=== PATIENT | male | born 1940 | race Two or more races ===

== ENCOUNTER 2019-07-27 07:13 | Emergency (ER) | payer MEDICARE, OTHER ==
[2019-07-27 07:26] VITALS: BP 165/58; PULSE 83
--- NOTE | 2019-07-27 07:29 | EDM.PDOC ---
ED HPI GENERAL MEDICAL PROBLEM - General Chief Complaint: Respiratory Problem Stated Complaint: TEMP/RAPID BREATHING/CONGESTION Time Seen by Provider: 07/27/19 07:28 Source of Information: Reports: Patient, Old Records, RN, RN Notes Reviewed History Limitations: Reports: No Limitations - History of Present Illness INITIAL COMMENTS - FREE TEXT/NARRATIVE: Pt presents to ER from home by POV with c/o dry cough and fever that began yesterday. His highest temperature at home yesterday was 101.2F. He has been taking Tylenol for this last dose was at 0630HRS. This morning he woke up and has been having some difficulty breathing and a dry cough, pt room air SATs 88% placed on 2L/NC during triage. Denies chest pain, or orthopnea. Denies recent travel or any known exposures to COVID-19. Onset: Gradual Onset Date: 07/26/19 Duration: Constant, Getting Worse Location: Reports: Chest, Generalized Severity: Severe Improves with: Reports: None Worsens with: Reports: None Associated Symptoms: Reports: No Other Symptoms - Related Data Allergies Allergy/AdvReac Type Severity Reaction Status Date / Time No Known Allergies Allergy Verified 10/22/14 13:49 Home Meds: Home Meds Aspirin [Neal Chewable Aspirin] 81 mg PO DAILY 12/07/13 [History] Levothyroxine 250 mcg PO DAILY 12/07/13 [History] Sodium Bicarbonate 650 mg PO BID 12/07/13 [History] amLODIPine [Norvasc] 10 mg PO BID 12/07/13 [History] atenoloL [Atenolol] 50 mg PO BID 12/07/13 [History] atorvaSTATin [Lipitor] 20 mg PO BEDTIME 12/07/13 [History] Furosemide [Lasix] 20 mg PO DAILY #30 tablet 01/12/14 [Rx] Fludrocortisone [Florinef] 0.1 mg PO DAILY 10/22/17 [History] Insulin Detemir [Levemir Flextouch] 19 units SUBCUT BID 10/22/17 [History] Pioglitazone [Actos] 15 mg PO BID 10/22/17 [History] Saxagliptin HCl [Onglyza] 5 mg PO DAILY 10/22/17 [History] Terazosin [Hytrin] 5 mg PO DAILY 10/22/17 [History] Past Medical History HEENT History: Reports: Impaired Vision Cardiovascular History: Reports: Heart Failure, High Cholesterol, Hypertension Genitourinary History: Reports: BPH, Chronic Renal Insuffiency, Other (See Below ) (CKD Stage 3) Endocrine/Metabolic History: Reports: Diabetes, Type II, Hypothyroidism, Obesity /BMI 30+ Social & Family History - Family History Family Medical History: Noncontributory - Alcohol Use Alcohol Use History: No - Recreational Drug Use Recreational Drug Use: No - Living Situation & Occupation Living situation: Reports: , with Spouse Occupation: Retired ED ROS GENERAL - Review of Systems Review Of Systems: Comprehensive ROS is negative, except as noted in HPI. ED EXAM, GENERAL - Physical Exam Exam: See Below Exam Limited By: No Limitations General Appearance: Alert, No Apparent Distress, Obese, Other (Ill but non- toxic appearing) Eye Exam: Bilateral Eye: EOMI, Normal Inspection (No scleral icterus, no conjunctival erythema, inflammation, or drainage.), PERRL Ears: Normal External Exam, Hearing Grossly Normal Nose: No Blood, Other (Mild congestion with clear mucus.) Throat/Mouth: Normal Lips, Normal Oropharynx, Normal Voice, No Airway Compromise , Other (Dry oral mucosa.) Head: Atraumatic, Normocephalic Neck: Normal Inspection, Supple, Non-Tender, Full Range of Motion. No: Lymphadenopathy (L), Lymphadenopathy (R) Respiratory/Chest: No Respiratory Distress, No Accessory Muscle Use, Decreased Breath Sounds. No: Crackles, Rales, Rhonchi, Wheezing, Stridor Cardiovascular: Regular Rate, Rhythm, No JVD, Other (+2 pitting edema (Rt > Left chronically)) GI/Abdominal: Normal Bowel Sounds, Soft, Non-Tender, No Distention Back Exam: Normal Inspection Extremities: Normal Range of Motion, Non-Tender, Pedal Edema. No: Joint Swelling, Verenice's Sign Neurological: Alert, Oriented, CN II-XII Intact, Normal Cognition, Normal Gait, No Motor/Sensory Deficits Psychiatric: Normal Mood Skin Exam: Warm, Dry, Intact, Normal Color, No Rash Course - Vital Signs Last Recorded V/S: Last Vital Signs Temp 99.1 F 07/27/19 07:18 Pulse 83 07/27/19 07:18 Resp BP 165/58 H 07/27/19 07:18 Pulse Ox 93 L 07/27/19 07:18 - Orders/Labs/Meds Orders: Active Orders 24 hr Category Date Time Status Peripheral IV Care [RC] . DIRECTED Care 07/27/19 07:36 Active CULTURE BLOOD [BC] Stat Lab 07/27/19 07:39 Received CULTURE BLOOD [] Stat Lab 07/27/19 08:48 Received CULTURE STREP A CONFIRMATION [] Stat Lab 07/27/19 07:41 Results STREP SCRN A RAPID W CULT CONF [] Stat Lab 07/27/19 07:41 Results Sodium Chloride 0.9% [Saline Flush] Med 07/27/19 07:36 Active 10 ml FLUSH ASDIRECTED PRN cefTRIAXone [Rocephin] 2 gm Med 07/27/19 09:06 Active Sodium Chloride 0.9% [Normal Saline] 100 ml IV ONETIME Blood Culture x2 Reflex Set [OM.PC] Stat Oth 07/27/19 07:35 Ordered Isolation [COMM] Routine Oth 07/27/19 07:36 Active Peripheral IV Insertion Adult [OM.PC] Stat Oth 07/27/19 07:35 Ordered Medication Orders Ceftriaxone Sodium 2 gm/ (Sodium Chloride) 100 mls @ 200 mls/hr IV ONETIME ONE Stop: 07/27/19 09:35 Sodium Chloride (Saline Flush) 10 ml FLUSH ASDIRECTED PRN PRN Reason: Keep Vein Open Last Admin: 07/27/19 07:42 Dose: 10 ml Labs: Laboratory Tests 07/27/19 07/27/19 07/27/19 Range/Units 07:39 07:39 07:39 WBC 5.3 (5.0-10.0) 10^3/uL RBC 4.43 L (4.6-6.2) 10^6/uL Hgb 12.3 L (14.0-18.0) g/dL Hct 39.0 L (40.0-54.0) % MCV 88.0 (80-100) fL MCH 27.8 (27.0-34.0) pg MCHC 31.5 L (33.0-35.0) g/dL Plt Count 183 (150-450) 10^3/uL Neut % (Auto) 86.8 H (42.2-75.2) % Lymph % (Auto) 5.6 L (20.5-50.1) % Ray % (Auto) 6.6 (2-8) % Eos % (Auto) 0.6 L (1.0-3.0) % Baso % (Auto) 0.4 (0.0-1.0) % Sodium 141 (136-145) mmol/L Potassium 3.8 (3.5-5.1) mmol/L Chloride 104 (98-107) mmol/L Carbon Dioxide 27 (21-32) mmol/L Anion Gap 13.8 H (7-13) mEq/L BUN 21 H (7-18) mg/dL Creatinine 1.67 H (0.70-1.30) mg/dL Est Cr Clr Drug Dosing 35.87 mL/min Estimated GFR (MDRD) 40 BUN/Creatinine Ratio 12.6 (No establ ref range) Glucose 159 H (74-99) mg/dL Lactic Acid 1.1 (0.4-2.0) mmol/L Calcium 8.3 L (8.5-10.1) mg/dL Ferritin (26-388) mg/mL Total Bilirubin 0.8 (0.2-1.0) mg/dL AST 31 (15-37) U/L ALT 35 (16-63) U/L Alkaline Phosphatase 67 (46-116) U/L C-Reactive Protein 1.3 H (0.0-0.9) mg/dL B-Natriuretic Peptide 609 H (0-100) pg/ml Total Protein 6.9 (6.4-8.2) g/dL Albumin 3.3 L (3.4-5.0) g/dL Globulin 3.6 Albumin/Globulin Ratio 0.92 Urine Color (YELLOW) Urine Appearance (CLEAR) Urine pH (5.0-9.0) Ur Specific [place] (1.005-1.030) Urine Protein (NEGATIVE) Urine Glucose (UA) (NEGATIVE) Urine Ketones (NEGATIVE) Urine Occult Blood (NEGATIVE) Urine Nitrite (NEGATIVE) Urine Bilirubin (NEGATIVE) Urine Urobilinogen (0.2-1.0) mg/dL Ur Leukocyte Esterase (NEGATIVE) Urine RBC /HPF Urine WBC (0-5/HPF) /HPF Ur Epithelial Cells (NOT SEEN) /HPF Amorphous Sediment (NOT SEEN) /HPF Urine Bacteria (0-FEW/HPF) /HPF Urine Mucus (NOT SEEN) /LPF SARS-CoV-2 RNA (RT-PCR) (NEGATIVE) 07/27/19 07/27/19 07/27/19 Range/Units 07:39 07:52 08:00 WBC (5.0-10.0) 10^3/uL RBC (4.6-6.2) 10^6/uL Hgb (14.0-18.0) g/dL Hct (40.0-54.0) % MCV (80-100) fL MCH (27.0-34.0) pg MCHC (33.0-35.0) g/dL Plt Count (150-450) 10^3/uL Neut % (Auto) (42.2-75.2) % Lymph % (Auto) (20.5-50.1) % Ray % (Auto) (2-8) % Eos % (Auto) (1.0-3.0) % Baso % (Auto) (0.0-1.0) % Sodium (136-145) mmol/L Potassium (3.5-5.1) mmol/L Chloride (98-107) mmol/L Carbon Dioxide (21-32) mmol/L Anion Gap (7-13) mEq/L BUN (7-18) mg/dL Creatinine (0.70-1.30) mg/dL Est Cr Clr Drug Dosing mL/min Estimated GFR (MDRD) BUN/Creatinine Ratio (No establ ref range) Glucose (74-99) mg/dL Lactic Acid (0.4-2.0) mmol/L Calcium (8.5-10.1) mg/dL Ferritin 181 (26-388) mg/mL Total Bilirubin (0.2-1.0) mg/dL AST (15-37) U/L ALT (16-63) U/L Alkaline Phosphatase (46-116) U/L C-Reactive Protein (0.0-0.9) mg/dL B-Natriuretic Peptide (0-100) pg/ml Total Protein (6.4-8.2) g/dL Albumin (3.4-5.0) g/dL Globulin Albumin/Globulin Ratio Urine Color Yellow (YELLOW) Urine Appearance Clear (CLEAR) Urine pH 6.5 (5.0-9.0) Ur Specific [place] 1.020 (1.005-1.030) Urine Protein 100 H (NEGATIVE) Urine Glucose (UA) Negative (NEGATIVE) Urine Ketones Negative (NEGATIVE) Urine Occult Blood Negative (NEGATIVE) Urine Nitrite Negative (NEGATIVE) Urine Bilirubin Negative (NEGATIVE) Urine Urobilinogen 0.2 (0.2-1.0) mg/dL Ur Leukocyte Esterase Negative (NEGATIVE) Urine RBC 0-5 /HPF Urine WBC 0-5 (0-5/HPF) /HPF Ur Epithelial Cells Rare (NOT SEEN) /HPF Amorphous Sediment Rare (NOT SEEN) /HPF Urine Bacteria Rare (0-FEW/HPF) /HPF Urine Mucus Rare (NOT SEEN) /LPF SARS-CoV-2 RNA (RT-PCR) Negative (NEGATIVE) Influenza A/B: negative Rapid Strep: negative Meds: Medications Generic Name Dose Route Start Last Admin Trade Name Freq PRN Reason Stop Dose Admin Ceftriaxone Sodium 2 gm/ 100 mls @ 200 mls/hr 07/27/19 09:06 Sodium Chloride IV 07/27/19 09:35 ONETIME ONE Sodium Chloride 10 ml 07/27/19 07:36 07/27/19 07:42 Saline Flush FLUSH 10 ml ASDIRECTED PRN Administration Keep Vein Open Discontinued Medications Generic Name Dose Route Start Last Admin Trade Name Freq PRN Reason Stop Dose Admin Azithromycin 500 mg 07/27/19 09:00 07/27/19 09:11 Zithromax PO 07/27/19 09:01 500 mg ONETIME ONE Administration Ceftriaxone Sodium 2 mg/ 100 mls @ 200 mls/hr 07/27/19 09:00 Sodium Chloride IV 07/27/19 09:29 ONETIME ONE - Radiology Interpretation Free Text/Narrative:: [facility] Final Radiology Report Call: [phone] assistance Online chat: [email or web address] Name: JOSE ZAVALA Age: 78Years M Date: 07/27/2019 SSN: -- : [id number] Study: CR CHEST 2V Requesting Physician: RISA SHIPMAN Images: 2 Addl Studies: Provided Clinical History: cough, dyspnea, fever Contrast: Contrast Medium: Contrast Amount: Contrast Method: CONFIDENTIALITY STATEMENT This report is intended only for use by the referring physician, and only in accordance with law. If you received this in error, call [phone]. Page 1 of 1 PROCEDURE INFORMATION: Exam: XR Chest, 2 Views Exam date and time: 07/27/2019 8:41 AM Age: 78 years old Clinical indication: Cough and dyspnea and fever; Additional info: Cough, dyspnea, fever TECHNIQUE: Imaging protocol: XR of the chest Views: 2 views. COMPARISON: CR Chest 1V Frontal 10/22/2017 6:36 PM FINDINGS: Lungs: Intervally improved perihilar interstitial markings at least partially due to improved inspiratory depth. Underlying chronic interstitial lung markings are still present bilaterally. Pleural space: No pleural effusion. No pneumothorax. Heart/Mediastinum: Borderline heart size. No pericardial effusion. Vasculature: Tortuous calcified aorta. Bones/joints: Scoliosis. No destructive bony lesion. Unchanged bones with possible old rib fractures. IMPRESSION: 1. Intervally improved aeration/lung markings at least partially due to improved inspiratory depth. 2. No segmental infiltrate or consolidation. 3. Underlying chronic interstitial lung pattern is present. Thank you for allowing us to participate in the care of your patient. Dictated and Authenticated by: Santiago Morris MD 07/27/2019 9:06 AM Central Time ([place] & [place]) Departure - Departure Time of Disposition: 09:22 Disposition: Home, Self-Care 01 Condition: Good Clinical Impression: Interstitial lung disease Acute bronchitis Qualifiers: Bronchitis organism: other organism Qualified Code(s): J20.8 - Acute bronchitis due to other specified organisms - Discharge Information *PRESCRIPTION DRUG MONITORING PROGRAM REVIEWED*: Not Applicable *COPY OF PRESCRIPTION DRUG MONITORING REPORT IN PATIENT PREET: Not Applicable Instructions: Acute Bronchitis, Adult, [id number], Shortness of Breath, Adult , [id number] Referrals: Vin Dinero MD [Primary Care Provider] - Forms: ED Department Discharge Additional Instructions: Your COVID-19 test is negative. Rx: Zithromax 500mg Use Tylenol as needed for fevers. Follow directions on label for dosing and precautions. Follow up in clinic on Thursday, July 28, or Thursday, July 31 for recheck. Return to ER if worse at any time. Sepsis Event Note (ED) - Evaluation Sepsis Screening Result: No Definite Risk - Focused Exam Vital Signs: Vital Signs Temp Pulse BP Pulse Ox 07/27/19 07:18 99.1 F 83 165/58 H 93 L - My Orders Last 24 Hours: My Active Orders 07/27/19 07:35 Blood Culture x2 Reflex Set [OM.PC] Stat Peripheral IV Insertion Adult [OM.PC] Stat 07/27/19 07:36 Peripheral IV Care [RC] . DIRECTED Sodium Chloride 0.9% [Saline Flush] 10 ml FLUSH ASDIRECTED PRN Isolation [COMM] Routine 07/27/19 07:39 CULTURE BLOOD [BC] Stat 07/27/19 07:41 CULTURE STREP A CONFIRMATION [RM] Stat STREP SCRN A RAPID W CULT CONF [RM] Stat 07/27/19 08:48 CULTURE BLOOD [BC] Stat 07/27/19 09:06 cefTRIAXone [Rocephin] 2 gm Sodium Chloride 0.9% [Normal Saline] 100 ml IV ONETIME - Assessment/Plan Last 24 Hours: My Active Orders 07/27/19 07:35 Blood Culture x2 Reflex Set [OM.PC] Stat Peripheral IV Insertion Adult [OM.PC] Stat 07/27/19 07:36 Peripheral IV Care [RC] . DIRECTED Sodium Chloride 0.9% [Saline Flush] 10 ml FLUSH ASDIRECTED PRN Isolation [COMM] Routine 07/27/19 07:39 CULTURE BLOOD [BC] Stat 07/27/19 07:41 CULTURE STREP A CONFIRMATION [RM] Stat STREP SCRN A RAPID W CULT CONF [RM] Stat 07/27/19 08:48 CULTURE BLOOD [BC] Stat 07/27/19 09:06 cefTRIAXone [Rocephin] 2 gm Sodium Chloride 0.9% [Normal Saline] 100 ml IV ONETIME
[2019-07-27] MEDS ORDERED: Sodium Chloride 0.9% 10 ML Syringe FLUSH PRN (07:36)
[2019-07-27 08:10] LABS: ANION GAP 13.8 mEq/L (7-13)
[2019-07-27] MEDS ORDERED: Azithromycin 250 MG Tab PO ONE (09:00)
[2019-07-27] MEDS ORDERED: cefTRIAXone 2 GM in Sodium Chloride 0.9% 100 ML IV ONE (09:06)
--- NOTE | 2019-07-27 09:06 | CR ---
PROCEDURE INFORMATION: Exam: XR Chest, 2 Views Exam date and time: 07/27/2019 8:41 AM Age: 78 years old Clinical indication: Cough and dyspnea and fever; Additional info: Cough, dyspnea, fever TECHNIQUE: Imaging protocol: XR of the chest Views: 2 views. COMPARISON: CR Chest 1V Frontal 10/22/2017 6:36 PM FINDINGS: Lungs: Intervally improved perihilar interstitial markings at least partially due to improved inspiratory depth. Underlying chronic interstitial lung markings are still present bilaterally. Pleural space: No pleural effusion. No pneumothorax. Heart/Mediastinum: Borderline heart size. No pericardial effusion. Vasculature: Tortuous calcified aorta. Bones/joints: Scoliosis. No destructive bony lesion. Unchanged bones with possible old rib fractures. IMPRESSION: 1. Intervally improved aeration/lung markings at least partially due to improved inspiratory depth. 2. No segmental infiltrate or consolidation. 3. Underlying chronic interstitial lung pattern is present.
== END 2019-07-27 10:00 | disposition home or self-care (01) ==
LOC: DL.ED 07:13
DX: J20.8 Acute bronchitis due to other specified organisms (principal); J84.9 Interstitial pulmonary disease, unspecified; I13.0 Hypertensive heart and chronic kidney disease with heart failure and stage 1 through stage 4 chronic kidney disease, or unspecified chronic kidney disease; I50.9 Heart failure, unspecified; E11.22 Type 2 diabetes mellitus with diabetic chronic kidney disease; N18.9 Chronic kidney disease, unspecified; E78.00 Pure hypercholesterolemia, unspecified; E03.9 Hypothyroidism, unspecified; E66.9 Obesity, unspecified; Z68.36 Body mass index [BMI] 36.0-36.9, adult; Z79.82 Long term (current) use of aspirin; Z79.4 Long term (current) use of insulin
CPT/HCPCS: 36415; 71046; 80053; 81001; 82728; 83605; 83880; 85025; 86140; 87040; 87081; 87430; 87804; 96365; 99284; A9270; J0696; J7050; U0002

== ENCOUNTER 2019-10-25 20:43 | Emergency (ER) | payer MEDICARE, OTHER ==
[2019-10-25 20:20] VITALS: BP 145/59; PULSE 67
[~2019-10-25 20:43] MED LIST: Sodium Chloride 0.9% 10 ML Syringe FLUSH PRN
[2019-10-25 21:00] LABS: ANION GAP 10.8 mEq/L (7-13)
--- NOTE | 2019-10-25 21:22 | CR ---
PROCEDURE INFORMATION: Exam: XR Chest, 1 View Exam date and time: 10/25/2019 8:50 PM Age: 78 years old Clinical indication: Chest pain TECHNIQUE: Imaging protocol: XR of the chest Views: 1 view. COMPARISON: No relevant prior studies available. FINDINGS: Lungs: Clear lung manning. No infiltrates. No edema. Pleural space: No pleural effusions. Heart/Mediastinum: Mild to moderate cardiac enlargement. Bones/joints: Unremarkable. IMPRESSION: 1. Cardiomegaly. 2. Clear lungs and pleural space.
--- NOTE | 2019-10-25 21:38 | EDM.PDOC ---
ED HPI GENERAL MEDICAL PROBLEM - General Chief Complaint: Fever Stated Complaint: COVID POSITIVE, TEMP Time Seen by Provider: 10/25/19 20:45 Source of Information: Reports: Patient, EMS, EMS Notes Reviewed, Family, RN, RN Notes Reviewed History Limitations: Reports: No Limitations - History of Present Illness INITIAL COMMENTS - FREE TEXT/NARRATIVE: Patient presents to ER per [facility] with complaint of fever. Patient states he was COVID positive on October 17, as well as his . Patient states on Thursday he began having a fever and has been using Ty lenol every 4-6 hours for the fever. He states that the Tylenol does take the temp down, but states it spikes again during the night or sometime after Tylenol. Patient states he has been eating and drinking well until today. States he had decreased appetite, but was trying to drink fluids. Patient denies any chest pains, shortness of breath, cough. States he has a history of hypertension, diabetes, stage III kidney disease, as well as CHF. Onset: Gradual Associated Symptoms: Reports: Fever/Chills, Loss of Appetite - Related Data Allergies Allergy/AdvReac Type Severity Reaction Status Date / Time No Known Allergies Allergy Verified 10/25/19 20:04 Home Meds: Home Meds Aspirin [Neal Chewable Aspirin] 81 mg PO DAILY 12/07/13 [History] Levothyroxine 175 mcg PO DAILY 12/07/13 [History] Sodium Bicarbonate 650 mg PO BID 12/07/13 [History] amLODIPine [Norvasc] 5 mg PO DAILY 12/07/13 [History] atenoloL [Atenolol] 50 mg PO BID 12/07/13 [History] atorvaSTATin [Lipitor] 20 mg PO BEDTIME 12/07/13 [History] Insulin Detemir [Levemir Flextouch] 19 units SUBCUT BID 10/22/17 [History] Pioglitazone [Actos] 15 mg PO DAILY 10/22/17 [History] Saxagliptin HCl [Onglyza] 5 mg PO DAILY 10/22/17 [History] Terazosin [Hytrin] 5 mg PO DAILY 10/22/17 [History] Fludrocortisone [Florinef] 0.1 mg PO Q48H 10/25/19 [History] Furosemide [Lasix] 40 mg PO DAILY 09/08/20 [History] Gabapentin [Neurontin] 300 mg PO DAILY PRN 10/25/19 [History] calcitrioL [Calcitriol] 0.25 mcg PO DAILY 10/25/19 [History] hydrALAZINE [Apresoline] 50 mg PO TID 10/25/19 [History] Past Medical History HEENT History: Reports: Impaired Vision Cardiovascular History: Reports: Heart Failure, High Cholesterol, Hypertension Genitourinary History: Reports: BPH, Chronic Renal Insuffiency, Other (See Below) Endocrine/Metabolic History: Reports: Diabetes, Type II, Hypothyroidism, Obesity/BMI 30+ - Infectious Disease History Infectious Disease History: Reports: Other (See Below) Other Infectious Disease History: COVID Social & Family History - Family History Family Medical History: Noncontributory - Tobacco Use Smoking Status *Q: Never Smoker - Caffeine Use Caffeine Use: Reports: None - Recreational Drug Use Recreational Drug Use: No - Living Situation & Occupation Living situation: Reports: , with Spouse Occupation: Retired ED ROS GENERAL - Review of Systems Review Of Systems: Comprehensive ROS is negative, except as noted in HPI. ED EXAM, GENERAL - Physical Exam Exam: See Below Exam Limited By: No Limitations General Appearance: Alert, WD/WN, No Apparent Distress Eye Exam: Bilateral Eye: EOMI, Normal Inspection Ears: Normal External Exam, Hearing Grossly Normal Nose: Normal Inspection Throat/Mouth: Normal Inspection, Normal Voice, No Airway Compromise Head: Atraumatic, Normocephalic Neck: Normal Inspection, Supple, Non-Tender, Full Range of Motion Respiratory/Chest: No Respiratory Distress, Lungs Clear, No Accessory Muscle Use, Chest Non-Tender, Decreased Breath Sounds Cardiovascular: Normal Peripheral Pulses, Regular Rate, Rhythm, Other (mild ankle/pedal edema to right lower extremity) Peripheral Pulses: 1+: Dorsalis Pedis (L), Dorsalis Pedis (R), 2+: Radial (L), Radial (R) GI/Abdominal: Normal Bowel Sounds, Soft, Non-Tender (Male) Exam: Deferred Rectal (Males) Exam: Deferred Back Exam: Normal Inspection, Full Range of Motion, NT Extremities: Normal Inspection, Normal Range of Motion, Non-Tender, Normal Capillary Refill, Pedal Edema (right ankle/pedal edema +1-2) Neurological: Alert, Oriented, CN II-XII Intact, Normal Cognition, Normal Gait, Normal Reflexes, No Motor/Sensory Deficits Psychiatric: Normal Affect, Normal Mood Skin Exam: Warm, Dry, Intact, Normal Color, No Rash Lymphatic: No Adenopathy Course - Vital Signs Last Recorded V/S: Last Vital Signs Temp 100.3 F 10/25/19 20:19 Pulse 67 10/25/19 20:19 Resp 22 H 10/25/19 20:19 BP 145/59 H 10/25/19 20:19 Pulse Ox 96 10/25/19 20:19 - Orders/Labs/Meds Orders: Active Orders 24 hr Category Date Time Status Peripheral IV Care [RC] . DIRECTED Care 10/25/19 19:53 Active CULTURE BLOOD [BC] Stat Lab 10/25/19 20:25 Received CULTURE BLOOD [BC] Stat Lab 10/25/19 20:32 Received UA RFX IRAIS AND CULT IF INDIC [URIN] Stat Lab 10/25/19 19:52 Ordered Sodium Chloride 0.9% [Saline Flush] Med 10/25/19 19:51 Active 10 ml FLUSH ASDIRECTED PRN Blood Culture x2 Reflex Set [OM.PC] Stat Oth 10/25/19 19:51 Ordered Peripheral IV Insertion Adult [OM.PC] Stat Oth 10/25/19 19:51 Ordered Medication Orders Sodium Chloride (Saline Flush) 10 ml FLUSH ASDIRECTED PRN PRN Reason: Keep Vein Open Last Admin: 10/25/19 20:47 Dose: 10 ml Documented by: KALI Labs: Laboratory Tests 10/25/19 10/25/19 10/25/19 Range/Units 20:25 20:25 20:25 WBC 4.6 L (5.0-10.0) 10^3/uL RBC 4.40 L (4.6-6.2) 10^6/uL Hgb 12.4 L (14.0-18.0) g/dL Hct 38.7 L (40.0-54.0) % MCV 88.0 (80-100) fL MCH 28.2 (27.0-34.0) pg MCHC 32.0 L (33.0-35.0) g/dL Plt Count 138 L (150-450) 10^3/uL Neut % (Auto) 76.3 H (42.2-75.2) % Lymph % (Auto) 14.7 L (20.5-50.1) % [place] % (Auto) 8.6 H (2-8) % Eos % (Auto) 0.2 L (1.0-3.0) % Baso % (Auto) 0.2 (0.0-1.0) % Sodium 142 (136-145) mmol/L Potassium 3.8 (3.5-5.1) mmol/L Chloride 104 (98-107) mmol/L Carbon Dioxide 31 (21-32) mmol/L Anion Gap 10.8 (7-13) mEq/L BUN 22 H (7-18) mg/dL Creatinine 1.80 H (0.70-1.30) mg/dL Est Cr Clr Drug Dosing 33.28 mL/min Estimated GFR (MDRD) 37 BUN/Creatinine Ratio 12.2 (No establ ref range) Glucose 127 H (74-99) mg/dL Lactic Acid 1.5 (0.4-2.0) mmol/L Calcium 8.2 L (8.5-10.1) mg/dL Total Bilirubin 0.4 (0.2-1.0) mg/dL AST 27 (15-37) U/L ALT 27 (16-63) U/L Alkaline Phosphatase 65 (46-116) U/L B-Natriuretic Peptide (0-100) pg/ml Total Protein 6.8 (6.4-8.2) g/dL Albumin 3.1 L (3.4-5.0) g/dL Globulin 3.7 Albumin/Globulin Ratio 0.84 09/08/20 Range/Units 20:25 WBC (5.0-10.0) 10^3/uL RBC (4.6-6.2) 10^6/uL Hgb (14.0-18.0) g/dL Hct (40.0-54.0) % MCV (80-100) fL MCH (27.0-34.0) pg MCHC (33.0-35.0) g/dL Plt Count (150-450) 10^3/uL Neut % (Auto) (42.2-75.2) % Lymph % (Auto) (20.5-50.1) % [place] % (Auto) (2-8) % Eos % (Auto) (1.0-3.0) % Baso % (Auto) (0.0-1.0) % Sodium (136-145) mmol/L Potassium (3.5-5.1) mmol/L Chloride (98-107) mmol/L Carbon Dioxide (21-32) mmol/L Anion Gap (7-13) mEq/L BUN (7-18) mg/dL Creatinine (0.70-1.30) mg/dL Est Cr Clr Drug Dosing mL/min Estimated GFR (MDRD) BUN/Creatinine Ratio (No establ ref range) Glucose (74-99) mg/dL Lactic Acid (0.4-2.0) mmol/L Calcium (8.5-10.1) mg/dL Total Bilirubin (0.2-1.0) mg/dL AST (15-37) U/L ALT (16-63) U/L Alkaline Phosphatase (46-116) U/L B-Natriuretic Peptide 400 H (0-100) pg/ml Total Protein (6.4-8.2) g/dL Albumin (3.4-5.0) g/dL Globulin Albumin/Globulin Ratio Meds: Medications Generic Name Dose Route Start Last Admin Trade Name Freq PRN Reason Stop Dose Admin Sodium Chloride 10 ml 10/25/19 19:51 10/25/19 20:47 Saline Flush FLUSH 10 ml ASDIRECTED PRN Administration Keep Vein Open - Re-Assessments/Exams Free Text/Narrative Re-Assessment/Exam: 10/25/19 21:40 Discussed patient case with Dr. Stringer who agreed that the patient is stable to be discharged home and manage symptoms at home. If patient symptoms worsen, return to the ER. Departure - Departure Time of Disposition: 21:56 Disposition: Home, Self-Care 01 Condition: Fair Clinical Impression: COVID-19, Chronic kidney disease stage 3, Diabetes mellitus, HTN, Essential hypertension Fever Qualifiers: Fever type: due to other condition Qualified Code(s): R50.81 - Fever presenting with conditions classified elsewhere - Discharge Information *PRESCRIPTION DRUG MONITORING PROGRAM REVIEWED*: No *COPY OF PRESCRIPTION DRUG MONITORING REPORT IN PATIENT PREET: No Instructions: COVID-19 Frequently Asked Questions, COVID-19, COVID-19: How to Protect Yourself and Others - CDC, Fever, Adult, [id number], Prevent the Spread of COVID-19 if You Are Sick - CDC Forms: ED Department Discharge Additional Instructions: Continue taking Tylenol as directed for fever/pain Drink plenty of fluids Follow up with your primary care facility if no improvement Return to the ER with any worsening of problems Sepsis Event Note (ED) - Evaluation Sepsis Screening Result: No Definite Risk - Focused Exam Vital Signs: Vital Signs Temp Pulse Resp BP Pulse Ox 10/25/19 20:19 100.3 F 67 22 H 145/59 H 96 - My Orders Last 24 Hours: My Active Orders 10/25/19 19:51 Sodium Chloride 0.9% [Saline Flush] 10 ml FLUSH ASDIRECTED PRN Blood Culture x2 Reflex Set [OM.PC] Stat Peripheral IV Insertion Adult [OM.PC] Stat 10/25/19 19:52 UA RFX IRAIS AND CULT IF INDIC [URIN] Stat 10/25/19 19:53 Peripheral IV Care [RC] . DIRECTED 10/25/19 20:25 CULTURE BLOOD [BC] Stat 10/25/19 20:32 CULTURE BLOOD [BC] Stat - Assessment/Plan Last 24 Hours: My Active Orders 10/25/19 19:51 Sodium Chloride 0.9% [Saline Flush] 10 ml FLUSH ASDIRECTED PRN Blood Culture x2 Reflex Set [OM.PC] Stat Peripheral IV Insertion Adult [OM.PC] Stat 10/25/19 19:52 UA RFX IRAIS AND CULT IF INDIC [URIN] Stat 10/25/19 19:53 Peripheral IV Care [RC] . DIRECTED 10/25/19 20:25 CULTURE BLOOD [BC] Stat 10/25/19 20:32 CULTURE BLOOD [BC] Stat
== END 2019-10-25 21:59 | disposition home or self-care (01) ==
LOC: DL.ED 20:43
DX: U07.1 COVID-19 (principal); I13.0 Hypertensive heart and chronic kidney disease with heart failure and stage 1 through stage 4 chronic kidney disease, or unspecified chronic kidney disease; E11.22 Type 2 diabetes mellitus with diabetic chronic kidney disease; N18.3 Chronic kidney disease, stage 3 (moderate); I50.9 Heart failure, unspecified; E03.9 Hypothyroidism, unspecified; E66.9 Obesity, unspecified; Z68.36 Body mass index [BMI] 36.0-36.9, adult; Z79.899 Other long term (current) drug therapy; Z79.4 Long term (current) use of insulin; Z79.82 Long term (current) use of aspirin
CPT/HCPCS: 36415; 71045; 80053; 81001; 83605; 83880; 85025; 87040; 99284

== ENCOUNTER 2019-10-28 17:02 | Inpatient (IN) | payer MEDICARE, OTHER ==
--- NOTE | 2019-10-28 17:03 | EDM.PDOC ---
ED HPI GENERAL MEDICAL PROBLEM - General Chief Complaint: Respiratory Problem Stated Complaint: COVID POSITIVE Time Seen by Provider: 10/28/19 17:03 Source of Information: Reports: Patient, Old Records, Provider (Dr. Augustin), RN, RN Notes Reviewed History Limitations: Reports: No Limitations - History of Present Illness INITIAL COMMENTS - FREE TEXT/NARRATIVE: Pt presents to ER from home by POV with c/o onset today of shortness of breath. Patient states he tested COVID positive at [facility] on 10/18/19. He says he has had a "hard time" with high fevers and body aches since the onset of this illness. Today is the first day that he has felt short of breath. Admits to cough, but it is dry and mild. He admits to generalized weakness and fatigue. Onset: Today Duration: Constant Location: Reports: Chest, Generalized Severity: Severe Improves with: Reports: None Worsens with: Reports: Other (Activity/Exertion) Associated Symptoms: Reports: Fever/Chills, Loss of Appetite, Malaise - Related Data Allergies Allergy/AdvReac Type Severity Reaction Status Date / Time No Known Allergies Allergy Verified 10/25/19 20:04 Home Meds: Home Meds Aspirin [Neal Chewable Aspirin] 81 mg PO DAILY 12/07/13 [History] Levothyroxine 175 mcg PO DAILY 12/07/13 [History] Sodium Bicarbonate 650 mg PO BID 12/07/13 [History] amLODIPine [Norvasc] 5 mg PO DAILY 12/07/13 [History] atenoloL [Atenolol] 50 mg PO BID 12/07/13 [History] atorvaSTATin [Lipitor] 20 mg PO BEDTIME 12/07/13 [History] Insulin Detemir [Levemir Flextouch] 19 units SUBCUT BID 10/22/17 [History] Pioglitazone [Actos] 15 mg PO DAILY 10/22/17 [History] Saxagliptin HCl [Onglyza] 5 mg PO DAILY 10/22/17 [History] Terazosin [Hytrin] 5 mg PO DAILY 10/22/17 [History] Fludrocortisone [Florinef] 0.1 mg PO Q48H 10/25/19 [History] Furosemide [Lasix] 40 mg PO DAILY 10/25/19 [History] Gabapentin [Neurontin] 300 mg PO DAILY PRN 10/25/19 [History] calcitrioL [Calcitriol] 0.25 mcg PO DAILY 10/25/19 [History] hydrALAZINE [Apresoline] 50 mg PO TID 10/25/19 [History] Past Medical History HEENT History: Reports: Impaired Vision Cardiovascular History: Reports: Heart Failure, High Cholesterol, Hypertension Genitourinary History: Reports: BPH, Chronic Renal Insuffiency, Other (See Below) Endocrine/Metabolic History: Reports: Diabetes, Type II, Hypothyroidism, Obesity/BMI 30+ - Infectious Disease History Infectious Disease History: Reports: Other (See Below) Other Infectious Disease History: COVID Social & Family History - Family History Family Medical History: Noncontributory - Caffeine Use Caffeine Use: Reports: None - Living Situation & Occupation Living situation: Reports: , with Spouse Occupation: Retired ED ROS GENERAL - Review of Systems Review Of Systems: Comprehensive ROS is negative, except as noted in HPI. ED EXAM, GENERAL - Physical Exam Exam: See Below Exam Limited By: No Limitations General Appearance: Alert, Anxious, Mild Distress Eye Exam: Bilateral Eye: Normal Inspection Nose: Normal Inspection, Normal Mucosa, No Blood Throat/Mouth: Normal Lips, Normal Voice, No Airway Compromise Head: Atraumatic, Normocephalic Neck: Normal Inspection, Supple, Non-Tender, Full Range of Motion Respiratory/Chest: Chest Non-Tender, Decreased Breath Sounds, Crackles, Wheezing. No: Rales, Rhonchi, Stridor Cardiovascular: Regular Rate, Rhythm, No Edema GI/Abdominal: Normal Bowel Sounds, Soft, Non-Tender Back Exam: Normal Inspection Extremities: Normal Inspection, Normal Range of Motion, Non-Tender, Normal Capillary Refill, No Pedal Edema Neurological: Alert, Oriented, CN II-XII Intact, Normal Cognition, No Motor/Sensory Deficits Psychiatric: Anxious Skin Exam: Warm, Dry, Intact, Normal Color, No Rash Course - Vital Signs Last Recorded V/S: Last Vital Signs Temp 98.6 F 10/28/19 17:28 Pulse 80 10/28/19 17:28 Resp 35 H 10/28/19 17:30 BP 215/75 H 10/28/19 17:28 Pulse Ox 100 10/28/19 17:30 Initial Oxygen Saturation on arrival: 73% on room air with good pleth. - Orders/Labs/Meds Orders: Active Orders 24 hr Category Date Time Status Peripheral IV Care [RC] . DIRECTED Care 10/28/19 17:06 Active RT Post Treatment Assessment [RC] Click to Edit Care 10/28/19 17:10 Active RT Pre-Treatment Assessment [RC] Click to Edit Care 10/28/19 17:10 Active Azithromycin [Zithromax] 500 mg Med 10/28/19 18:30 Active Sodium Chloride 0.9% [Normal Saline (AdvBag)] 250 ml IV ONETIME Sodium Chloride 0.9% [Saline Flush] Med 10/28/19 17:05 Active 10 ml FLUSH ASDIRECTED PRN Peripheral IV Insertion Adult [OM.PC] Stat Oth 10/28/19 17:03 Ordered Medication Orders Azithromycin 500 mg/ Sodium (Chloride) 250 mls @ 250 mls/hr IV ONETIME ONE Stop: 10/28/19 19:29 Last Admin: 10/28/19 18:44 Dose: 250 mls/hr Documented by: KALI Sodium Chloride (Saline Flush) 10 ml FLUSH ASDIRECTED PRN PRN Reason: Keep Vein Open Last Admin: 10/28/19 17:46 Dose: 10 ml Documented by: KALI Labs: Laboratory Tests 10/28/19 10/28/19 10/28/19 Range/Units 17:20 17:20 17:20 WBC 3.8 L (5.0-10.0) 10^3/uL RBC 4.58 L (4.6-6.2) 10^6/uL Hgb 12.8 L (14.0-18.0) g/dL Hct 39.8 L (40.0-54.0) % MCV 86.9 (80-100) fL MCH 27.9 (27.0-34.0) pg MCHC 32.2 L (33.0-35.0) g/dL Plt Count 120 L (150-450) 10^3/uL Neut % (Auto) 66.3 (42.2-75.2) % Lymph % (Auto) 23.1 (20.5-50.1) % [place] % (Auto) 10.3 H (2-8) % Eos % (Auto) 0.0 L (1.0-3.0) % Baso % (Auto) 0.3 (0.0-1.0) % PT 10.6 (9.0-12.0) SEC INR 1.1 (0.9-1.2) APTT 27.9 (22.0-34.0) SEC D-Dimer, Quantitative (0-400) ng/mL ABG pH (7.35-7.45) ABG pCO2 (35-45) mmHg ABG pO2 (70-100) mmHg ABG HCO3 (22-26) mmol/L ABG O2 Saturation (95-100) % ABG Base Excess ((-2)-(+3)) mmol/L Clifford Test O2 Delivery Device Sodium 138 (136-145) mmol/L Potassium 3.4 L (3.5-5.1) mmol/L Chloride 102 (98-107) mmol/L Carbon Dioxide 27 (21-32) mmol/L Anion Gap 12.4 (7-13) mEq/L BUN 22 H (7-18) mg/dL Creatinine 1.54 H (0.70-1.30) mg/dL Est Cr Clr Drug Dosing 38.90 mL/min Estimated GFR (MDRD) 44 BUN/Creatinine Ratio 14.3 (No establ ref range) Glucose 211 H (74-99) mg/dL Lactic Acid (0.4-2.0) mmol/L Calcium 8.4 L (8.5-10.1) mg/dL Total Bilirubin 0.6 (0.2-1.0) mg/dL AST 26 (15-37) U/L ALT 22 (16-63) U/L Alkaline Phosphatase 60 (46-116) U/L Troponin I 0.033 (0.000-0.056) ng/mL C-Reactive Protein 6.0 H (0.0-0.9) mg/dL B-Natriuretic Peptide 768 H (0-100) pg/ml Total Protein 6.9 (6.4-8.2) g/dL Albumin 2.8 L (3.4-5.0) g/dL Globulin 4.1 Albumin/Globulin Ratio 0.68 10/28/19 10/28/19 10/28/19 Range/Units 17:20 17:20 17:30 WBC (5.0-10.0) 10^3/uL RBC (4.6-6.2) 10^6/uL Hgb (14.0-18.0) g/dL Hct (40.0-54.0) % MCV (80-100) fL MCH (27.0-34.0) pg MCHC (33.0-35.0) g/dL Plt Count (150-450) 10^3/uL Neut % (Auto) (42.2-75.2) % Lymph % (Auto) (20.5-50.1) % [place] % (Auto) (2-8) % Eos % (Auto) (1.0-3.0) % Baso % (Auto) (0.0-1.0) % PT (9.0-12.0) SEC INR (0.9-1.2) APTT (22.0-34.0) SEC D-Dimer, Quantitative 999 H (0-400) ng/mL ABG pH 7.37 (7.35-7.45) ABG pCO2 42 (35-45) mmHg ABG pO2 83 (70-100) mmHg ABG HCO3 23.8 (22-26) mmol/L ABG O2 Saturation 98 (95-100) % ABG Base Excess -1 ((-2)-(+3)) mmol/L Clifford Test Performed O2 Delivery Device Non rebr mask Sodium (136-145) mmol/L Potassium (3.5-5.1) mmol/L Chloride (98-107) mmol/L Carbon Dioxide (21-32) mmol/L Anion Gap (7-13) mEq/L BUN (7-18) mg/dL Creatinine (0.70-1.30) mg/dL Est Cr Clr Drug Dosing mL/min Estimated GFR (MDRD) BUN/Creatinine Ratio (No establ ref range) Glucose (74-99) mg/dL Lactic Acid 1.5 (0.4-2.0) mmol/L Calcium (8.5-10.1) mg/dL Total Bilirubin (0.2-1.0) mg/dL AST (15-37) U/L ALT (16-63) U/L Alkaline Phosphatase (46-116) U/L Troponin I (0.000-0.056) ng/mL C-Reactive Protein (0.0-0.9) mg/dL B-Natriuretic Peptide (0-100) pg/ml Total Protein (6.4-8.2) g/dL Albumin (3.4-5.0) g/dL Globulin Albumin/Globulin Ratio Meds: Medications Generic Name Dose Route Start Last Admin Trade Name Fremarla PRN Reason Stop Dose Admin Azithromycin 500 mg/ Sodium 250 mls @ 250 mls/hr 10/28/19 18:30 10/28/19 18:44 Chloride IV 10/28/19 19:29 250 mls/hr ONETIME ONE Administration Sodium Chloride 10 ml 10/28/19 17:05 10/28/19 17:46 Saline Flush FLUSH 10 ml ASDIRECTED PRN Administration Keep Vein Open Discontinued Medications Generic Name Dose Route Start Last Admin Trade Name Freq PRN Reason Stop Dose Admin Albuterol 6.7 gm 10/28/19 17:10 10/28/19 17:22 Proventil Hfa INH 10/28/19 17:11 2 puff ONETIME ONE Administration Dexamethasone 6 mg 10/28/19 17:09 10/28/19 17:20 Dexamethasone IVPUSH 10/28/19 17:10 6 mg ONETIME ONE Administration - Re-Assessments/Exams Free Text/Narrative Re-Assessment/Exam: 10/28/19 18:[address] Stringer regarding admission vs transfer of the pt. He is checking on the availability of Remdesivir at this facility and will call back shortly. 10/28/19 18:52 Remdesivir is available here, pt does not want to transfer to [facility] in and wants to be admitted here. Departure - Departure Time of Disposition: 18:53 (admitted to Dr. Stringer) Disposition: Admitted As Inpatient 65 Condition: Fair, Serious Clinical Impression: Acute respiratory failure due to COVID-19 - Discharge Information *PRESCRIPTION DRUG MONITORING PROGRAM REVIEWED*: Not Applicable *COPY OF PRESCRIPTION DRUG MONITORING REPORT IN PATIENT PREET: Not Applicable Forms: ED Department Discharge Sepsis Event Note (ED) - Focused Exam Vital Signs: Vital Signs Temp Pulse Resp BP Pulse Ox 10/28/19 17:30 35 H 100 10/28/19 17:28 98.6 F 80 40 H 215/75 H 75 L - My Orders Last 24 Hours: My Active Orders 10/28/19 17:03 Peripheral IV Insertion Adult [OM.PC] Stat 10/28/19 17:05 Sodium Chloride 0.9% [Saline Flush] 10 ml FLUSH ASDIRECTED PRN 10/28/19 17:06 Peripheral IV Care [RC] . DIRECTED 10/28/19 17:10 RT Post Treatment Assessment [RC] Click to Edit RT Pre-Treatment Assessment [RC] Click to Edit 10/28/19 18:30 Azithromycin [Zithromax] 500 mg Sodium Chloride 0.9% [Normal Saline (AdvBag)] 250 ml IV ONETIME - Assessment/Plan Last 24 Hours: My Active Orders 10/28/19 17:03 Peripheral IV Insertion Adult [OM.PC] Stat 10/28/19 17:05 Sodium Chloride 0.9% [Saline Flush] 10 ml FLUSH ASDIRECTED PRN 10/28/19 17:06 Peripheral IV Care [RC] . DIRECTED 10/28/19 17:10 RT Post Treatment Assessment [RC] Click to Edit RT Pre-Treatment Assessment [RC] Click to Edit 10/28/19 18:30 Azithromycin [Zithromax] 500 mg Sodium Chloride 0.9% [Normal Saline (AdvBag)] 250 ml IV ONETIME
[2019-10-28] MEDS ORDERED: Dexamethasone 4 MG/ML SDV IVPUSH ONE (17:09)
[2019-10-28] MEDS ORDERED: Albuterol 6.7 GM Inhaler INH ONE (17:10)
[2019-10-28] MEDS: Sodium Chloride 0.9% 10 ML Syringe FLUSH PRN (17:46)
[2019-10-28 17:54] LABS: ANION GAP 12.4 mEq/L (7-13)
[2019-10-28 18:07] LABS: ALLEN TEST PERFORMED; BASE EXCESS ARTERIAL -1 mmol/L ((-2)-(+3)); BICARBONATE,ARTERIAL 23.8 mmol/L (22-26); O2 DELIVERY DEVICE NON REBR MASK; O2 SATURATION ARTERIAL 98 % (95-100); PCO2 ARTERIAL 42 mmHg (35-45); PO2 ARTERIAL 83 mmHg (70-100)
[2019-10-28 18:10] LABS: PTT,PARTIAL THROMBOPLSTIN TIME 27.9 SEC (22.0-34.0)
[2019-10-28] MEDS ORDERED: Azithromycin 500 MG in Sodium Chloride 0.9% 250 ML IV ONE (18:30)
--- NOTE | 2019-10-28 18:39 | CT ---
PROCEDURE INFORMATION: Exam: CT Chest Without Contrast Exam date and time: 10/28/2019 5:43 PM Age: 78 years old Clinical indication: Other: Covid with hypoxia; Additional info: Covid with acute hypoxia TECHNIQUE: Imaging protocol: Computed tomography of the chest without contrast. Radiation optimization: All CT scans at this facility use at least one of these dose optimization techniques: automated exposure control; mA and/or kV adjustment per patient size (includes targeted exams where dose is matched to clinical indication); or iterative reconstruction. COMPARISON: CR Chest 1V Frontal 10/25/2019 8:50 PM FINDINGS: Lungs: Multifocal ground-glass opacities throughout both lungs most prominent in left lung base. There is mild smooth prominence of pulmonary interstitium. Pleural space: Small bilateral pleural effusions Heart: Unremarkable. No cardiomegaly. No pericardial effusion. Mediastinal space: Small hiatal hernia Aorta: Unremarkable. No aortic aneurysm. Lymph nodes: Unremarkable. No enlarged lymph nodes. Bones/joints: Unremarkable. No acute fracture. Soft tissues: Unremarkable. IMPRESSION: 1. Mild interstitial edema. The ground-glass opacities could represent asymmetric alveolar edema. Atypical infiltrates could be considered however alternatively 2. Small pleural effusions
[2019-10-28] MEDS ORDERED: Ondansetron 4 MG/2 ML SDV IVPUSH PRN (19:28)
[2019-10-28] MEDS ORDERED: Docusate Sodium 100 MG Cap PO PRN (19:28)
[2019-10-28] MEDS ORDERED: Sodium Chloride 0.9% 10 ML Syringe FLUSH PRN (19:28)
[2019-10-28] MEDS ORDERED: Acetaminophen 325 MG Tab PO PRN (19:28)
[2019-10-28] MEDS ORDERED: Insulin Lispro 100 Units/ML 3 ML Vial SUBCUT SCH (19:30)
--- NOTE | 2019-10-28 19:43 | PCM.HP ---
H&P History of Present Illness - General Date of Service: 10/28/19 Admit Problem/Dx: Admission Diagnosis/Problem Admission Diagnosis/Problem Acute respiratory failure Source of Information: Patient History Limitations: Reports: No Limitations - History of Present Illness Initial Comments - Free Text/Narative: The patient is a 78-year-old man with medical history of CHF, hypertension, chronic kidney disease, diabetes mellitus type 2, and hypothyroidism. The patient presented to the emergency room with complaint of shortness of breath. He was diagnosed with coronavirus about 10 days ago. He has been having intermittent fevers. He has been seen in the emergency room and appeared to be doing okay. However today he began to have shortness of breath and a worsened over time. Patient presented to the emergency room and was noted to be hypoxic with oxygen saturation down to 76%. Had to be placed on supplemental oxygen. CT scan of the chest showed evidence of diffuse bilateral infiltrate worse on the left lower lobe. - Related Data Allergies/Adverse Reactions: Allergies Allergy/AdvReac Type Severity Reaction Status Date / Time No Known Allergies Allergy Verified 10/25/19 20:04 Home Medications: Home Meds Aspirin [Neal Chewable Aspirin] 81 mg PO DAILY 12/07/13 [History] Levothyroxine 175 mcg PO DAILY 12/07/13 [History] Sodium Bicarbonate 650 mg PO BID 12/07/13 [History] amLODIPine [Norvasc] 5 mg PO DAILY 12/07/13 [History] atenoloL [Atenolol] 50 mg PO BID 12/07/13 [History] atorvaSTATin [Lipitor] 20 mg PO BEDTIME 12/07/13 [History] Insulin Detemir [Levemir Flextouch] 19 units SUBCUT BID 10/22/17 [History] Pioglitazone [Actos] 15 mg PO DAILY 10/22/17 [History] Saxagliptin HCl [Onglyza] 5 mg PO DAILY 10/22/17 [History] Terazosin [Hytrin] 5 mg PO DAILY 10/22/17 [History] Fludrocortisone [Florinef] 0.1 mg PO Q48H 10/25/19 [History] Furosemide [Lasix] 40 mg PO DAILY 10/25/19 [History] Gabapentin [Neurontin] 300 mg PO DAILY PRN 10/25/19 [History] calcitrioL [Calcitriol] 0.25 mcg PO DAILY 10/25/19 [History] hydrALAZINE [Apresoline] 50 mg PO TID 10/25/19 [History] Past Medical History HEENT History: Reports: Impaired Vision Cardiovascular History: Reports: Heart Failure, High Cholesterol, Hypertension Genitourinary History: Reports: BPH, Chronic Renal Insuffiency, Other (See Below) Endocrine/Metabolic History: Reports: Diabetes, Type II, Hypothyroidism, O besity/BMI 30+ - Infectious Disease History Infectious Disease History: Reports: Other (See Below) Other Infectious Disease History: COVID Social & Family History - Family History Family Medical History: Noncontributory - Tobacco Use Smoking Status *Q: Never Smoker - Caffeine Use Caffeine Use: Reports: None - Recreational Drug Use Recreational Drug Use: No - Living Situation & Occupation Living situation: Reports: , with Spouse Occupation: Retired H&P Review of Systems - Review of Systems: Review Of Systems: See Below General: Reports: Fever, Malaise, Weakness Pulmonary: Reports: Shortness of Breath, Wheezing Cardiovascular: Reports: No Symptoms Gastrointestinal: Reports: No Symptoms Musculoskeletal: Reports: No Symptoms Skin: Reports: No Symptoms Psychiatric: Reports: No Symptoms Neurological: Reports: No Symptoms Exam - Exam Exam: See Below - Vital Signs Vital Signs: Last Vital Signs Temp 37.0 C 10/28/19 17:28 Pulse 80 10/28/19 17:28 Resp 35 H 10/28/19 17:30 BP 215/75 H 10/28/19 17:28 Pulse Ox 100 10/28/19 17:30 Weight: 107.955 kg - Exam Quality Assessment: Supplemental Oxygen General: Alert, Oriented, Cooperative, Mild Distress Neck: Supple Lungs: Decreased Breath Sounds Cardiovascular: Regular Rate, Regular Rhythm GI/Abdominal Exam: Normal Bowel Sounds, Soft, Non-Tender, No Organomegaly, No Distention, No Abnormal Bruit, No Mass, Pelvis Stable Extremities: Normal Inspection, Normal Range of Motion, Non-Tender, No Pedal Edema, Normal Capillary Refill Skin: Warm, Dry, Intact - Patient Data Lab Results Last 24 hrs: Laboratory Results - last 24 hr 10/28/19 10/28/19 10/28/19 Range/Units 17:20 17:20 17:20 WBC 3.8 L (5.0-10.0) 10^3/uL RBC 4.58 L (4.6-6.2) 10^6/uL Hgb 12.8 L (14.0-18.0) g/dL Hct 39.8 L (40.0-54.0) % MCV 86.9 (80-100) fL MCH 27.9 (27.0-34.0) pg MCHC 32.2 L (33.0-35.0) g/dL Plt Count 120 L (150-450) 10^3/uL Neut % (Auto) 66.3 (42.2-75.2) % Lymph % (Auto) 23.1 (20.5-50.1) % [place] % (Auto) 10.3 H (2-8) % Eos % (Auto) 0.0 L (1.0-3.0) % Baso % (Auto) 0.3 (0.0-1.0) % PT 10.6 (9.0-12.0) SEC INR 1.1 (0.9-1.2) APTT 27.9 (22.0-34.0) SEC D-Dimer, Quantitative (0-400) ng/mL ABG pH (7.35-7.45) ABG pCO2 (35-45) mmHg ABG pO2 (70-100) mmHg ABG HCO3 (22-26) mmol/L ABG O2 Saturation (95-100) % ABG Base Excess ((-2)-(+3)) mmol/L Clifford Test O2 Delivery Device Sodium 138 (136-145) mmol/L Potassium 3.4 L (3.5-5.1) mmol/L Chloride 102 (98-107) mmol/L Carbon Dioxide 27 (21-32) mmol/L Anion Gap 12.4 (7-13) mEq/L BUN 22 H (7-18) mg/dL Creatinine 1.54 H (0.70-1.30) mg/dL Est Cr Clr Drug Dosing 38.90 mL/min Estimated GFR (MDRD) 44 BUN/Creatinine Ratio 14.3 (No establ ref range) Glucose 211 H (74-99) mg/dL Lactic Acid (0.4-2.0) mmol/L Calcium 8.4 L (8.5-10.1) mg/dL Total Bilirubin 0.6 (0.2-1.0) mg/dL AST 26 (15-37) U/L ALT 22 (16-63) U/L Alkaline Phosphatase 60 (46-116) U/L Troponin I 0.033 (0.000-0.056) ng/mL C-Reactive Protein 6.0 H (0.0-0.9) mg/dL B-Natriuretic Peptide 768 H (0-100) pg/ml Total Protein 6.9 (6.4-8.2) g/dL Albumin 2.8 L (3.4-5.0) g/dL Globulin 4.1 Albumin/Globulin Ratio 0.68 10/28/19 10/28/19 10/28/19 Range/Units 17:20 17:20 17:30 WBC (5.0-10.0) 10^3/uL RBC (4.6-6.2) 10^6/uL Hgb (14.0-18.0) g/dL Hct (40.0-54.0) % MCV (80-100) fL MCH (27.0-34.0) pg MCHC (33.0-35.0) g/dL Plt Count (150-450) 10^3/uL Neut % (Auto) (42.2-75.2) % Lymph % (Auto) (20.5-50.1) % [place] % (Auto) (2-8) % Eos % (Auto) (1.0-3.0) % Baso % (Auto) (0.0-1.0) % PT (9.0-12.0) SEC INR (0.9-1.2) APTT (22.0-34.0) SEC D-Dimer, Quantitative 999 H (0-400) ng/mL ABG pH 7.37 (7.35-7.45) ABG pCO2 42 (35-45) mmHg ABG pO2 83 (70-100) mmHg ABG HCO3 23.8 (22-26) mmol/L ABG O2 Saturation 98 (95-100) % ABG Base Excess -1 ((-2)-(+3)) mmol/L Clifford Test Performed O2 Delivery Device Non rebr mask Sodium (136-145) mmol/L Potassium (3.5-5.1) mmol/L Chloride (98-107) mmol/L Carbon Dioxide (21-32) mmol/L Anion Gap (7-13) mEq/L BUN (7-18) mg/dL Creatinine (0.70-1.30) mg/dL Est Cr Clr Drug Dosing mL/min Estimated GFR (MDRD) BUN/Creatinine Ratio (No establ ref range) Glucose (74-99) mg/dL Lactic Acid 1.5 (0.4-2.0) mmol/L Calcium (8.5-10.1) mg/dL Total Bilirubin (0.2-1.0) mg/dL AST (15-37) U/L ALT (16-63) U/L Alkaline Phosphatase (46-116) U/L Troponin I (0.000-0.056) ng/mL C-Reactive Protein (0.0-0.9) mg/dL B-Natriuretic Peptide (0-100) pg/ml Total Protein (6.4-8.2) g/dL Albumin (3.4-5.0) g/dL Globulin Albumin/Globulin Ratio Result Diagrams: 10/28/19 17:20 10/28/19 17:20 Problem List Initiated/Reviewed/Updated: Yes Orders Last 24hrs: Active Orders 24 hr Category Date Time Status Admission Diagnosis [ADT] Routine ADT 10/28/19 19:21 Ordered Patient Status [ADT] Routine ADT 10/28/19 19:21 Active Patient Status [ADT] Routine ADT 10/28/19 19:28 Ordered Blood Glucose Check, Bedside [RC] QIDACANDBED Care 10/28/19 19:28 Ordered Cardiac Monitoring [RC] CONTINUOUS Care 10/28/19 19:29 Ordered Diabetes Education [RC] Click to Edit Care 10/28/19 19:31 Ordered Intake and Output [RC] QSHIFT Care 10/28/19 19:29 Ordered Oxygen Therapy [RC] PRN Care 10/28/19 19:28 Ordered Peripheral IV Care [RC] . DIRECTED Care 10/28/19 17:06 Active RT Post Treatment Assessment [RC] Click to Edit Care 10/28/19 17:10 Active RT Pre-Treatment Assessment [RC] Click to Edit Care 10/28/19 17:10 Active Up ad Maryuri [RC] ASDIRECTED Care 10/28/19 19:28 Ordered VTE/DVT Education [RC] PER UNIT ROUTINE Care 10/28/19 19:28 Ordered Vital Signs [RC] Q4H Care 10/28/19 19:28 Ordered Consistent Carbohydrate Diet [DIET] Diet 10/28/19 Dinner Ordered CBC WITH AUTO DIFF [HEME] AM Lab 10/29/19 05:11 Ordered COMPREHENSIVE METABOLIC PN,CMP [CHEM] AM Lab 10/29/19 05:11 Ordered CULTURE SPUTUM + SMEAR [RM] Stat Lab 10/28/19 19:28 Ordered Acetaminophen [TylenoL] Med 10/28/19 19:28 Ordered 650 mg PO Q4H PRN Azithromycin [Zithromax] 500 mg Med 10/29/19 19:45 Ordered Sodium Chloride 0.9% [Normal Saline (AdvBag)] 250 ml IV Q24H Docusate Sodium [Colace] Med 10/28/19 19:28 Ordered 100 mg PO BID PRN Enoxaparin [Lovenox] Med 10/28/19 19:30 Ordered 40 mg SUBCUT Q12H Insulin Lispro [HumaLOG] Med 10/28/19 19:30 Ordered See Protocol SUBCUT ASDIRECTED Ondansetron [Zofran] Med 10/28/19 19:28 Ordered 4 mg IVPUSH Q6H PRN Remdesivir (Eua) [Remdesivir (EUA)] 100 mg Med 10/29/19 19:36 Ordered Sodium Chloride 0.9% [Normal Saline] 210 ml IV ONETIME Remdesivir (Eua) [Remdesivir (EUA)] 200 mg Med 10/28/19 19:36 Ordered Sodium Chloride 0.9% [Normal Saline] 210 ml IV ONETIME Sodium Chloride 0.9% [Saline Flush] Med 10/28/19 17:05 Active 10 ml FLUSH ASDIRECTED PRN Sodium Chloride 0.9% [Saline Flush] Med 10/28/19 19:28 Ordered 10 ml FLUSH ASDIRECTED PRN cefTRIAXone [Rocephin] 1 gm Med 10/29/19 19:45 Ordered Sodium Chloride 0.9% [Normal Saline] 50 ml IV Q24H Glucose Management Sub Q Reflex [OM.PC] Click to Edit Oth 10/28/19 19:28 Ordered Peripheral IV Insertion Adult [OM.PC] Stat Oth 10/28/19 17:03 Ordered Saline Lock Insert [OM.PC] Routine Oth 10/28/19 19:28 Ordered Resuscitation Status Routine Resus Stat 10/28/19 19:28 Ordered Medication Orders Acetaminophen (Tylenol) 650 mg PO Q4H PRN PRN Reason: Pain (Mild 1-3)/fever Docusate Sodium (Colace) 100 mg PO BID PRN PRN Reason: Constipation Enoxaparin Sodium (Lovenox) 40 mg SUBCUT Q12H SREE Remdesivir 200 mg/ Sodium (Chloride) 210 mls @ 210 mls/hr IV ONETIME ONE Stop: 10/28/19 19:37 Remdesivir 100 mg/ Sodium (Chloride) 210 mls @ 210 mls/hr IV ONETIME ONE Stop: 10/29/19 19:37 Azithromycin 500 mg/ Sodium (Chloride) 250 mls @ 250 mls/hr IV Q24H SREE Ceftriaxone Sodium 1 gm/ (Sodium Chloride) 50 mls @ 100 mls/hr IV Q24H SREE Insulin Human Lispro (Humalog) 0 unit SUBCUT ASDIRECTED SREE; Protocol Ondansetron HCl (Zofran) 4 mg IVPUSH Q6H PRN PRN Reason: Nausea/Vomiting Sodium Chloride (Saline Flush) 10 ml FLUSH ASDIRECTED PRN PRN Reason: Keep Vein Open Last Admin: 10/28/19 17:46 Dose: 10 ml Documented by: TILTALI Sodium Chloride (Saline Flush) 10 ml FLUSH ASDIRECTED PRN PRN Reason: Keep Vein Open Assessment/Plan Comment:: #. Acute hypoxemic respiratory failure This is as a result of coronavirus infection leading to pneumonia #. Acute pneumonitis This is secondary to coronavirus infection Patient is documented to have coronavirus #. Probable acute exacerbation of CHF BNP is elevated and Chest x-ray showed pulmonary vascular congestion #. Hypertension Blood pressure is elevated above target range #. Chronic kidney disease Serum creatinine is at 1.54 This is about his baseline #. Diabetes mellitus type 2 On insulin and other hypoglycemic agents #. Morbid obesity #. Hypothyroidism On hormone replacement therapy #. Hypokalemia Serum potassium is at 3.4 Plan: Admit patient to medical floor Start patient on dexamethasone 6 mg daily Start intravenous Lasix 20 mg every 24 hours Monitor blood sugar before meals and at bedtime Obtain repeat basic metabolic panel Correct potassium deficit Obtain repeat complete blood count Start patient on Remdesivir Start patient on azithromycin and ceftriaxone Patient's medical chart reviewed. Close hemodynamic monitoring. Maintain patient on supplemental oxygen. I reserve low threshold for transferring the patient to higher-level of care if he shows any sign of deterioration.
[2019-10-28] MEDS ORDERED: Potassium Chloride 10 MEQ Tab.ER PO ONE (19:50)
[2019-10-28] MEDS ORDERED: Dexamethasone 2 MG Tab PO SCH (20:00)
[2019-10-28] MEDS ORDERED: cefTRIAXone 1 GM in Sodium Chloride 0.9% 50 ML IV SCH (21:00)
[2019-10-28] MEDS: Insulin Lispro 100 Units/ML 3 ML Vial SUBCUT SCH (21:24)
[2019-10-28] MEDS: Enoxaparin 40 MG/0.4 ML Syringe SUBCUT SCH (21:25)
[2019-10-28] MEDS ORDERED: Gabapentin 300 MG Cap PO PRN (22:47)
[2019-10-28] MEDS ORDERED: LORazepam 0.5 MG Tab PO ONE (23:37)
[2019-10-29] MEDS: Albuterol 6.7 GM Inhaler INH PRN ×3 (04:30→18:01)
[2019-10-29] MEDS ORDERED: Levothyroxine 75 MCG Tab PO SCH (06:00)
[2019-10-29] MEDS ORDERED: Levothyroxine 100 MCG Tab PO SCH (06:00)
[2019-10-29] MEDS ORDERED: Levothyroxine 150 MCG Tab PO SCH (06:00)
[2019-10-29 07:11] LABS: ANION GAP 11.4 mEq/L (7-13)
[2019-10-29] MEDS: Insulin Lispro 100 Units/ML 3 ML Vial SUBCUT SCH ×3 (08:42→17:18)
[2019-10-29] MEDS: hydrALAZINE 25 MG Tab PO SCH ×2 (08:46→14:46)
[2019-10-29] MEDS: Enoxaparin 40 MG/0.4 ML Syringe SUBCUT SCH (08:50)
[2019-10-29] MEDS ORDERED: Insulin Glarg,Human.Rec.Analog 100 Unit/ML SUBCUT SCH ×2 (09:00→21:00)
[2019-10-29] MEDS ORDERED: Non-Formulary Medication 1 Each (Saxagliptin Hcl [Onglyza] 5 MG) PO SCH (09:00)
[2019-10-29] MEDS ORDERED: Aspirin 81 MG Tab.Chew PO SCH (09:00)
[2019-10-29] MEDS ORDERED: Calcitriol 0.25 MCG Cap PO SCH (09:00)
[2019-10-29] MEDS ORDERED: amLODIPine 5 MG Tab PO SCH (09:00)
[2019-10-29] MEDS ORDERED: Sodium Bicarbonate 650 MG Tab PO SCH (09:00)
[2019-10-29] MEDS ORDERED: Atenolol 50 MG Tab PO SCH ×2 (09:00→21:00)
[2019-10-29] MEDS ORDERED: Furosemide 40 MG/4 ML VIAL IVPUSH SCH (09:15)
[2019-10-29] MEDS ORDERED: amLODIPine 5 MG Tab PO ONE (09:15)
[2019-10-29] MEDS ORDERED: Atenolol 50 MG Tab PO ONE (09:15)
[2019-10-29] MEDS: Sodium Chloride 0.9% 10 ML Syringe FLUSH PRN ×3 (09:34→18:26)
[2019-10-29] MEDS ORDERED: LORazepam 0.5 MG Tab PO PRN (09:59)
[2019-10-29] MEDS ORDERED: LORazepam 1 MG Tab PO PRN (10:00)
--- NOTE | 2019-10-29 10:19 | PCM.PN ---
- General Info Date of Service: 10/29/19 Subjective Update: The patient indicates feeling short of breath Shortness of breath is present at rest but worse with activity. It is also was when the patient lays down. He is needing up to 6 L/m of oxygen at this point. No fever overnight. He is a little tachypneic. - Review of Systems General: Reports: Weakness, Malaise Pulmonary: Reports: Shortness of Breath, Cough Gastrointestinal: Reports: No Symptoms Musculoskeletal: Reports: No Symptoms Skin: Reports: No Symptoms - Patient Data Vitals - Most Recent: Last Vital Signs Temp 37.2 C 10/29/19 08:00 Pulse 92 10/29/19 09:34 Resp 17 10/29/19 08:00 BP 173/70 H 10/29/19 09:35 Pulse Ox 96 10/29/19 08:00 Weight - Most Recent: 109.951 kg Lab Results Last 24 Hours: Laboratory Results - last 24 hr 10/28/19 10/28/19 10/28/19 Range/Units 17:20 17:20 17:20 WBC 3.8 L (5.0-10.0) 10^3/uL RBC 4.58 L (4.6-6.2) 10^6/uL Hgb 12.8 L (14.0-18.0) g/dL Hct 39.8 L (40.0-54.0) % MCV 86.9 (80-100) fL MCH 27.9 (27.0-34.0) pg MCHC 32.2 L (33.0-35.0) g/dL Plt Count 120 L (150-450) 10^3/uL Neut % (Auto) 66.3 (42.2-75.2) % Lymph % (Auto) 23.1 (20.5-50.1) % [place] % (Auto) 10.3 H (2-8) % Eos % (Auto) 0.0 L (1.0-3.0) % Baso % (Auto) 0.3 (0.0-1.0) % PT 10.6 (9.0-12.0) SEC INR 1.1 (0.9-1.2) APTT 27.9 (22.0-34.0) SEC D-Dimer, Quantitative (0-400) ng/mL ABG pH (7.35-7.45) ABG pCO2 (35-45) mmHg ABG pO2 (70-100) mmHg ABG HCO3 (22-26) mmol/L ABG O2 Saturation (95-100) % ABG Base Excess ((-2)-(+3)) mmol/L Clifford Test O2 Delivery Device Sodium 138 (136-145) mmol/L Potassium 3.4 L (3.5-5.1) mmol/L Chloride 102 (98-107) mmol/L Carbon Dioxide 27 (21-32) mmol/L Anion Gap 12.4 (7-13) mEq/L BUN 22 H (7-18) mg/dL Creatinine 1.54 H (0.70-1.30) mg/dL Est Cr Clr Drug Dosing 38.90 mL/min Estimated GFR (MDRD) 44 BUN/Creatinine Ratio 14.3 (No establ ref range) Glucose 211 H (74-99) mg/dL POC Glucose (83-110) mg/dl Lactic Acid (0.4-2.0) mmol/L Calcium 8.4 L (8.5-10.1) mg/dL Total Bilirubin 0.6 (0.2-1.0) mg/dL AST 26 (15-37) U/L ALT 22 (16-63) U/L Alkaline Phosphatase 60 (46-116) U/L Troponin I 0.033 (0.000-0.056) ng/mL C-Reactive Protein 6.0 H (0.0-0.9) mg/dL B-Natriuretic Peptide 768 H (0-100) pg/ml Total Protein 6.9 (6.4-8.2) g/dL Albumin 2.8 L (3.4-5.0) g/dL Globulin 4.1 Albumin/Globulin Ratio 0.68 10/28/19 10/28/19 10/28/19 Range/Units 17:20 17:20 17:30 WBC (5.0-10.0) 10^3/uL RBC (4.6-6.2) 10^6/uL Hgb (14.0-18.0) g/dL Hct (40.0-54.0) % MCV (80-100) fL MCH (27.0-34.0) pg MCHC (33.0-35.0) g/dL Plt Count (150-450) 10^3/uL Neut % (Auto) (42.2-75.2) % Lymph % (Auto) (20.5-50.1) % [place] % (Auto) (2-8) % Eos % (Auto) (1.0-3.0) % Baso % (Auto) (0.0-1.0) % PT (9.0-12.0) SEC INR (0.9-1.2) APTT (22.0-34.0) SEC D-Dimer, Quantitative 999 H (0-400) ng/mL ABG pH 7.37 (7.35-7.45) ABG pCO2 42 (35-45) mmHg ABG pO2 83 (70-100) mmHg ABG HCO3 23.8 (22-26) mmol/L ABG O2 Saturation 98 (95-100) % ABG Base Excess -1 ((-2)-(+3)) mmol/L Clifford Test Performed O2 Delivery Device Non rebr mask Sodium (136-145) mmol/L Potassium (3.5-5.1) mmol/L Chloride (98-107) mmol/L Carbon Dioxide (21-32) mmol/L Anion Gap (7-13) mEq/L BUN (7-18) mg/dL Creatinine (0.70-1.30) mg/dL Est Cr Clr Drug Dosing mL/min Estimated GFR (MDRD) BUN/Creatinine Ratio (No establ ref range) Glucose (74-99) mg/dL POC Glucose (83-110) mg/dl Lactic Acid 1.5 (0.4-2.0) mmol/L Calcium (8.5-10.1) mg/dL Total Bilirubin (0.2-1.0) mg/dL AST (15-37) U/L ALT (16-63) U/L Alkaline Phosphatase (46-116) U/L Troponin I (0.000-0.056) ng/mL C-Reactive Protein (0.0-0.9) mg/dL B-Natriuretic Peptide (0-100) pg/ml Total Protein (6.4-8.2) g/dL Albumin (3.4-5.0) g/dL Globulin Albumin/Globulin Ratio 09/01/0510/29/19 10/29/19 Range/Units 20:38 06:15 06:15 WBC 3.2 L (5.0-10.0) 10^3/uL RBC 4.37 L (4.6-6.2) 10^6/uL Hgb 12.1 L (14.0-18.0) g/dL Hct 37.6 L (40.0-54.0) % MCV 86.0 (80-100) fL MCH 27.7 (27.0-34.0) pg MCHC 32.2 L (33.0-35.0) g/dL Plt Count 120 L (150-450) 10^3/uL Neut % (Auto) 78.3 H (42.2-75.2) % Lymph % (Auto) 12.1 L (20.5-50.1) % [place] % (Auto) 9.6 H (2-8) % Eos % (Auto) 0.0 L (1.0-3.0) % Baso % (Auto) 0.0 (0.0-1.0) % PT (9.0-12.0) SEC INR (0.9-1.2) APTT (22.0-34.0) SEC D-Dimer, Quantitative (0-400) ng/mL ABG pH (7.35-7.45) ABG pCO2 (35-45) mmHg ABG pO2 (70-100) mmHg ABG HCO3 (22-26) mmol/L ABG O2 Saturation (95-100) % ABG Base Excess ((-2)-(+3)) mmol/L Clifford Test O2 Delivery Device Sodium 139 (136-145) mmol/L Potassium 4.4 (3.5-5.1) mmol/L Chloride 103 (98-107) mmol/L Carbon Dioxide 29 (21-32) mmol/L Anion Gap 11.4 (7-13) mEq/L BUN 27 H (7-18) mg/dL Creatinine 1.53 H (0.70-1.30) mg/dL Est Cr Clr Drug Dosing 39.15 mL/min Estimated GFR (MDRD) 44 BUN/Creatinine Ratio 17.6 (No establ ref range) Glucose 303 H (74-99) mg/dL POC Glucose 239 H (83-110) mg/dl Lactic Acid (0.4-2.0) mmol/L Calcium 8.1 L (8.5-10.1) mg/dL Total Bilirubin 0.5 (0.2-1.0) mg/dL AST 29 (15-37) U/L ALT 25 (16-63) U/L Alkaline Phosphatase 58 (46-116) U/L Troponin I (0.000-0.056) ng/mL C-Reactive Protein (0.0-0.9) mg/dL B-Natriuretic Peptide (0-100) pg/ml Total Protein 6.7 (6.4-8.2) g/dL Albumin 2.7 L (3.4-5.0) g/dL Globulin 4.0 Albumin/Globulin Ratio 0.68 /02/04 Range/Units 08:07 WBC (5.0-10.0) 10^3/uL RBC (4.6-6.2) 10^6/uL Hgb (14.0-18.0) g/dL Hct (40.0-54.0) % MCV (80-100) fL MCH (27.0-34.0) pg MCHC (33.0-35.0) g/dL Plt Count (150-450) 10^3/uL Neut % (Auto) (42.2-75.2) % Lymph % (Auto) (20.5-50.1) % [place] % (Auto) (2-8) % Eos % (Auto) (1.0-3.0) % Baso % (Auto) (0.0-1.0) % PT (9.0-12.0) SEC INR (0.9-1.2) APTT (22.0-34.0) SEC D-Dimer, Quantitative (0-400) ng/mL ABG pH (7.35-7.45) ABG pCO2 (35-45) mmHg ABG pO2 (70-100) mmHg ABG HCO3 (22-26) mmol/L ABG O2 Saturation (95-100) % ABG Base Excess ((-2)-(+3)) mmol/L Clifford Test O2 Delivery Device Sodium (136-145) mmol/L Potassium (3.5-5.1) mmol/L Chloride (98-107) mmol/L Carbon Dioxide (21-32) mmol/L Anion Gap (7-13) mEq/L BUN (7-18) mg/dL Creatinine (0.70-1.30) mg/dL Est Cr Clr Drug Dosing mL/min Estimated GFR (MDRD) BUN/Creatinine Ratio (No establ ref range) Glucose (74-99) mg/dL POC Glucose 264 H (83-110) mg/dl Lactic Acid (0.4-2.0) mmol/L Calcium (8.5-10.1) mg/dL Total Bilirubin (0.2-1.0) mg/dL AST (15-37) U/L ALT (16-63) U/L Alkaline Phosphatase (46-116) U/L Troponin I (0.000-0.056) ng/mL C-Reactive Protein (0.0-0.9) mg/dL B-Natriuretic Peptide (0-100) pg/ml Total Protein (6.4-8.2) g/dL Albumin (3.4-5.0) g/dL Globulin Albumin/Globulin Ratio Med Orders - Current: Current Medications Acetaminophen (Tylenol) 650 mg PO Q4H PRN PRN Reason: Pain (Mild 1-3)/fever Albuterol (Proventil Hfa) 0 gm INH Q4H PRN PRN Reason: shortness of breath Last Admin: 10/29/19 04:30 Dose: 2 puff Documented by: Amlodipine Besylate (Norvasc) 10 mg PO DAILY [facility] Aspirin (Aspirin) 81 mg PO DAILY [facility] Last Admin: 10/29/19 08:47 Dose: 81 mg Documented by: Atenolol (Tenormin) 100 mg PO BID [facility] Atorvastatin Calcium (Lipitor) 10 mg PO BEDTIME [facility] Calcitriol (Rocaltrol) 0.25 mcg PO DAILY [facility] Last Admin: 10/29/19 08:47 Dose: 0.25 mcg Documented by: Dexamethasone (Dexamethasone) 6 mg PO Q24H [facility] Docusate Sodium (Colace) 100 mg PO BID PRN PRN Reason: Constipation Enoxaparin Sodium (Lovenox) 40 mg SUBCUT Q12H [facility] Last Admin: 10/29/19 08:50 Dose: 40 mg Documented by: Fludrocortisone Acetate (Florinef) 0.1 mg PO Q48H [facility] Furosemide (Lasix) 40 mg IVPUSH DAILY [facility] Last Admin: 10/29/19 09:34 Dose: 40 mg Documented by: Gabapentin (Neurontin) 300 mg PO DAILY PRN PRN Reason: Pain Hydralazine HCl (Apresoline) 50 mg PO TID [facility] Last Admin: 10/29/19 08:46 Dose: 50 mg Documented by: Remdesivir 100 mg/ Sodium (Chloride) 210 mls @ 210 mls/hr IV Q24H [facility] Stop: 11/01/19 20:59 Azithromycin 500 mg/ Sodium (Chloride) 250 mls @ 250 mls/hr IV Q24H [facility] Ceftriaxone Sodium 1 gm/ (Sodium Chloride) 50 mls @ 100 mls/hr IV Q24H [facility] Last Admin: 10/28/19 22:26 Dose: 100 mls/hr Documented by: Insulin Glargine (Lantus) 19 unit SUBCUT BID [facility] Last Admin: 10/29/19 08:43 Dose: 19 units Documented by: Insulin Human Lispro (Humalog) 0 unit SUBCUT WITHMEALSANDBED [facility]; Protocol Last Admin: 10/29/19 08:42 Dose: 3 unit Documented by: Levothyroxine Sodium (Synthroid) [address] [facility] Last Admin: 10/29/19 05:10 Dose: 100 mcg Documented by: Levothyroxine Sodium (Levothyroxine) [address] [facility] Last Admin: 10/29/19 05:10 Dose: 75 mcg Documented by: Lorazepam (Ativan) 0.5 mg PO Q8H PRN PRN Reason: anxiety Lorazepam (Ativan) 1 mg PO BEDTIME PRN PRN Reason: insomnia Non-Formulary Medication (Saxagliptin Hcl [Onglyza]) 5 mg PO DAILY [facility] Ondansetron HCl (Zofran) 4 mg IVPUSH Q6H PRN PRN Reason: Nausea/Vomiting Pioglitazone HCl (Actos) 15 mg PO DAILY [facility] Last Admin: 10/29/19 08:47 Dose: 15 mg Documented by: Sodium Bicarbonate (Sodium Bicarbonate) 650 mg PO BID [facility] Last Admin: 10/29/19 08:46 Dose: 650 mg Documented by: Sodium Chloride (Saline Flush) 10 ml FLUSH ASDIRECTED PRN PRN Reason: Keep Vein Open Last Admin: 10/29/19 09:34 Dose: 10 ml Documented by: Terazosin HCl (Hytrin) 5 mg PO BEDTIME [facility] Discontinued Medications Albuterol (Proventil Hfa) 6.7 gm INH ONETIME ONE Stop: 10/28/19 17:11 Last Admin: 10/28/19 17:22 Dose: 2 puff Documented by: Amlodipine Besylate (Norvasc) 5 mg PO DAILY [facility] Last Admin: 10/29/19 08:46 Dose: 5 mg Documented by: Amlodipine Besylate (Norvasc) 5 mg PO ONETIME ONE Stop: 10/29/19 09:16 Last Admin: 10/29/19 09:35 Dose: 5 mg Documented by: Atenolol (Tenormin) 50 mg PO BID [facility] Last Admin: 10/29/19 08:47 Dose: 50 mg Documented by: Atenolol (Tenormin) 50 mg PO ONETIME ONE Stop: 10/29/19 09:16 Last Admin: 10/29/19 09:34 Dose: 50 mg Documented by: Dexamethasone (Dexamethasone) 6 mg IVPUSH ONETIME ONE Stop: 10/28/19 17:10 Last Admin: 10/28/19 17:20 Dose: 6 mg Documented by: Dexamethasone (Dexamethasone) 6 mg PO Q24H [facility] Azithromycin 500 mg/ Sodium (Chloride) 250 mls @ 250 mls/hr IV ONETIME ONE Stop: 10/28/19 19:29 Last Admin: 10/28/19 18:44 Dose: 250 mls/hr Documented by: Remdesivir 200 mg/ Sodium (Chloride) 210 mls @ 210 mls/hr IV ONETIME ONE Stop: 10/28/19 19:37 Last Admin: 10/28/19 21:18 Dose: 210 mls/hr Documented by: Ceftriaxone Sodium 1 gm/ (Sodium Chloride) 50 mls @ 100 mls/hr IV Q24H [facility] Insulin Human Lispro (Humalog) 0 unit SUBCUT ASDIRECTED [facility]; Protocol Levothyroxine Sodium (Levothyroxine) 175 mcg PO ACBREAKFAST [facility] Lorazepam (Ativan) 0.5 mg PO ONETIME ONE Stop: 10/28/19 23:38 Last Admin: 10/28/19 23:54 Dose: 0.5 mg Documented by: Potassium Chloride (Klor-Con 10) 40 meq PO ONETIME ONE Stop: 10/28/19 19:51 Last Admin: 10/28/19 21:26 Dose: 40 meq Documented by: Sodium Chloride (Saline Flush) 10 ml FLUSH ASDIRECTED PRN PRN Reason: Keep Vein Open - Exam Quality Assessment: Supplemental Oxygen General: Alert, Oriented Neck: Supple Lungs: Clear to Auscultation, Normal Respiratory Effort, Decreased Breath Sounds, Crackles Cardiovascular: Regular Rate, Regular Rhythm Back Exam: Full Range of Motion Extremities: Normal Inspection, Normal Range of Motion, Non-Tender, No Pedal Edema, Normal Capillary Refill Sepsis Event Note - Evaluation Sepsis Screening Result: No Definite Risk - Focused Exam Vital Signs: Vital Signs Temp Pulse Pulse Resp BP BP BP 10/29/19 09:35 173/70 H 10/29/19 09:34 92 173/70 H 10/29/19 08:47 88 194/84 H 10/29/19 08:46 194/84 H 10/29/19 08:00 37.2 C 88 17 194/84 H 10/29/19 04:00 36.7 C 81 28 H 176/71 H 10/29/19 00:00 36.6 C 89 22 H 137/44 L Pulse Ox 10/29/19 09:35 10/29/19 09:34 10/29/19 08:47 10/29/19 08:46 10/29/19 08:00 96 10/29/19 04:00 95 10/29/19 00:00 94 L - Problem List Review Problem List Initiated/Reviewed/Updated: Yes - My Orders Last 24 Hours: My Active Orders 10/28/19 Dinner Consistent Carbohydrate Diet [DIET] 10/28/19 19:28 Patient Status [ADT] Routine Blood Glucose Check, Bedside [RC] QIDACANDBED Oxygen Therapy [RC] .PRN Up ad Maryuri [RC] ASDIRECTED VTE/DVT Education [RC] PER UNIT ROUTINE Vital Signs [RC] 00,04,08,12,16,20 CULTURE SPUTUM + SMEAR [RM] Stat Acetaminophen [TylenoL] 650 mg PO Q4H PRN Docusate Sodium [Colace] 100 mg PO BID PRN Ondansetron [Zofran] 4 mg IVPUSH Q6H PRN Glucose Management Sub Q Reflex [OM.PC] Click To Edit Saline Lock Insert [OM.PC] Routine Resuscitation Status Routine 10/28/19 19:29 Cardiac Monitoring [RC] Intake and Output [RC] QSHIFT 10/28/19 19:49 RT Post Treatment Assessment [RC] .PRN RT Pre-Treatment Assessment [RC] .PRN Albuterol [Proventil HFA] 0 gm INH Q4H PRN 10/28/19 20:00 Enoxaparin [Lovenox] 40 mg SUBCUT Q12H 10/28/19 21:00 Insulin Lispro [HumaLOG] See Protocol SUBCUT WITHMEALSANDBED cefTRIAXone [Rocephin] 1 gm Sodium Chloride 0.9% [Normal Saline] 50 ml IV Q24H 10/28/19 22:47 Gabapentin [Neurontin] 300 mg PO DAILY PRN 10/29/19 00:33 Isolation [COMM] Routine 10/29/19 06:00 Levothyroxine 75 mcg PO ACBRK Levothyroxine [Synthroid] 100 mcg PO ACBRK 10/29/19 09:00 Aspirin 81 mg PO DAILY Insulin Glarg,Human.Rec.Analog [LantUS] 19 unit SUBCUT BID Pioglitazone [Actos] 15 mg PO DAILY Saxagliptin HCl [Onglyza] 5 mg PO DAILY Sodium Bicarbonate 650 mg PO BID calcitrioL [Rocaltrol] 0.25 mcg PO DAILY hydrALAZINE [Apresoline] 50 mg PO TID 10/29/19 09:15 Furosemide [Lasix] 40 mg IVPUSH DAILY 10/29/19 09:59 LORazepam [Ativan] 0.5 mg PO Q8H PRN 10/29/19 10:00 LORazepam [Ativan] 1 mg PO BEDTIME PRN 10/29/19 18:00 Azithromycin [Zithromax] 500 mg Sodium Chloride 0.9% [Normal Saline (AdvBag)] 250 ml IV Q24H 10/29/19 20:00 Remdesivir (Eua) [Remdesivir (EUA)] 100 mg Sodium Chloride 0.9% [Normal Saline] 210 ml IV Q24H dexAMETHasone 6 mg PO Q24H 10/29/19 21:00 Terazosin [Hytrin] 5 mg PO BEDTIME atenoloL [Tenormin] 100 mg PO BID atorvaSTATin [Lipitor] 10 mg PO BEDTIME 10/30/19 08:00 Fludrocortisone [Florinef] 0.1 mg PO Q48H 10/30/19 09:00 amLODIPine [Norvasc] 10 mg PO DAILY 10/30/19 09:12 B-TYPE NATRIURETIC PEPTIDE,BNP [CHEM] Routine - Plan Plan:: #. Acute hypoxemic respiratory failure Likely due coronavirus infection induced pneumonitis Patient is on 6 L/m and saturating about 92% #. Acute Viral pneumonitis This is secondary to coronavirus infection Patient is documented to have coronavirus Cannot rule out bacterial superinfection #. Probable acute exacerbation of CHF BNP is elevated and Chest x-ray showed pulmonary vascular congestion #. Hypertension Blood pressure is elevated above target range #. Chronic kidney disease Serum creatinine is at 1.54 This is about his baseline #. Diabetes mellitus type 2 On insulin and other hypoglycemic agents #. Morbid obesity #. Hypothyroidism On hormone replacement therapy #. Hypokalemia Serum potassium is at 3.4 Plan: Increase Lasix to 40 mg every 24 hours Intravenous Remdesvir Obtain repeat basic metabolic panel Obtain repeat complete blood count Replace electrolyte abnormalities Increase insulin doses for better glycemic control Blood pressure has been poorly controlled Increase amlodipine to 10 mg daily Increase atenolol to 100 mg 2 times a day
[2019-10-29 16:57] VITALS: BP 180/70; PULSE 79
[2019-10-29] MEDS ORDERED: Azithromycin 500 MG in Sodium Chloride 0.9% 250 ML IV SCH (18:00)
--- NOTE | 2019-10-29 18:14 | PCM.DCSUM1 ---
Discharge Summary - Hospital Course Free Text/Narrative:: he patient was admitted with pneumonia secondary to coronavirus 19. Patient was started on dexamethasone and Remdesvir. He has been hypoxic Clinical condition worsened on the patient to be transferred to a higher level #. Acute hypoxemic respiratory failure Likely due coronavirus infection induced pneumonitis Patient is on 6 L/m and saturating about 92% #. Acute Viral pneumonitis This is secondary to coronavirus infection Patient is documented to have coronavirus Cannot rule out bacterial superinfection #. Probable acute exacerbation of CHF BNP is elevated and Chest x-ray showed pulmonary vascular congestion #. Hypertension Blood pressure is elevated above target range #. Chronic kidney disease Serum creatinine is at 1.54 This is about his baseline #. Diabetes mellitus type 2 On insulin and other hypoglycemic agents #. Morbid obesity #. Hypothyroidism On hormone replacement therapy #. Hypokalemia Serum potassium is at 3.4 Diagnosis: Stroke: No - Discharge Data Discharge Date: 10/29/19 Discharge Disposition: DC/Tfer to Acute Hospital 02 Condition: Good - Referral to Home Health Primary Care Physician: PCP None - Discharge Plan *PRESCRIPTION DRUG MONITORING PROGRAM REVIEWED*: Not Applicable *COPY OF PRESCRIPTION DRUG MONITORING REPORT IN PATIENT PREET: Not Applicable Home Medications: Home Meds Aspirin [Neal Chewable Aspirin] 81 mg PO DAILY 12/07/13 [History] Levothyroxine 175 mcg PO ACBREAKFAST 12/07/13 [History] Sodium Bicarbonate 650 mg PO BID 12/07/13 [History] amLODIPine [Norvasc] 5 mg PO DAILY 12/07/13 [History] atenoloL [Atenolol] 50 mg PO BID 12/07/13 [History] atorvaSTATin [Lipitor] 10 mg PO BEDTIME 12/07/13 [History] Insulin Detemir [Levemir Flextouch] 19 units SUBCUT BID 10/22/17 [History] Pioglitazone [Actos] 15 mg PO DAILY 10/22/17 [History] Saxagliptin HCl [Onglyza] 5 mg PO DAILY 10/22/17 [History] Terazosin [Hytrin] 5 mg PO BEDTIME 10/22/17 [History] Fludrocortisone [Florinef] 0.1 mg PO Q48H 10/25/19 [History] Furosemide [Lasix] 40 mg PO DAILY 10/25/19 [History] Gabapentin [Neurontin] 300 mg PO DAILY PRN 10/25/19 [History] calcitrioL [Calcitriol] 0.25 mcg PO DAILY 10/25/19 [History] hydrALAZINE [Apresoline] 50 mg PO TID 10/25/19 [History] LORazepam [Ativan] 0.5 mg PO Q8H PRN 10/29/19 [History] Forms: ED Department Discharge Referrals: PCP,None [Primary Care Provider] - - Discharge Summary/Plan Comment DC Time >30 min.: No - Review of Systems General: Reports: Fatigue, Malaise Pulmonary: Reports: Shortness of Breath, Cough Cardiovascular: Reports: No Symptoms Gastrointestinal: Reports: No Symptoms Genitourinary: Reports: No Symptoms Musculoskeletal: Reports: No Symptoms Skin: Reports: No Symptoms - Patient Data Vitals - Most Recent: Last Vital Signs Temp 37.4 C 10/29/19 16:00 Pulse 79 10/29/19 16:00 Resp 20 10/29/19 16:00 BP 180/70 H 10/29/19 16:00 Pulse Ox 93 L 10/29/19 16:00 Weight - Most Recent: 109.951 kg I&O - Last 24 hours: Intake & Output 10/29/19 10/29/19 10/29/19 06:59 14:59 22:59 Intake Total 900 Output Total 1050 Balance -150 Lab Results - Last 24 hrs: Laboratory Results - last 24 hr 10/28/19 10/29/19 10/29/19 Range/Units 20:38 06:15 06:15 WBC 3.2 L (5.0-10.0) 10^3/uL RBC 4.37 L (4.6-6.2) 10^6/uL Hgb 12.1 L (14.0-18.0) g/dL Hct 37.6 L (40.0-54.0) % MCV 86.0 (80-100) fL MCH 27.7 (27.0-34.0) pg MCHC 32.2 L (33.0-35.0) g/dL Plt Count 120 L (150-450) 10^3/uL Neut % (Auto) 78.3 H (42.2-75.2) % Lymph % (Auto) 12.1 L (20.5-50.1) % [place] % (Auto) 9.6 H (2-8) % Eos % (Auto) 0.0 L (1.0-3.0) % Baso % (Auto) 0.0 (0.0-1.0) % Sodium 139 (136-145) mmol/L Potassium 4.4 (3.5-5.1) mmol/L Chloride 103 (98-107) mmol/L Carbon Dioxide 29 (21-32) mmol/L Anion Gap 11.4 (7-13) mEq/L BUN 27 H (7-18) mg/dL Creatinine 1.53 H (0.70-1.30) mg/dL Est Cr Clr Drug Dosing 39.15 mL/min Estimated GFR (MDRD) 44 BUN/Creatinine Ratio 17.6 (No establ ref range) Glucose 303 H (74-99) mg/dL POC Glucose 239 H (83-110) mg/dl Calcium 8.1 L (8.5-10.1) mg/dL Total Bilirubin 0.5 (0.2-1.0) mg/dL AST 29 (15-37) U/L ALT 25 (16-63) U/L Alkaline Phosphatase 58 (46-116) U/L Total Protein 6.7 (6.4-8.2) g/dL Albumin 2.7 L (3.4-5.0) g/dL Globulin 4.0 Albumin/Globulin Ratio 0.68 10/29/19 10/29/19 10/29/19 Range/Units 08:07 11:30 16:42 WBC (5.0-10.0) 10^3/uL RBC (4.6-6.2) 10^6/uL Hgb (14.0-18.0) g/dL Hct (40.0-54.0) % MCV (80-100) fL MCH (27.0-34.0) pg MCHC (33.0-35.0) g/dL Plt Count (150-450) 10^3/uL Neut % (Auto) (42.2-75.2) % Lymph % (Auto) (20.5-50.1) % [place] % (Auto) (2-8) % Eos % (Auto) (1.0-3.0) % Baso % (Auto) (0.0-1.0) % Sodium (136-145) mmol/L Potassium (3.5-5.1) mmol/L Chloride (98-107) mmol/L Carbon Dioxide (21-32) mmol/L Anion Gap (7-13) mEq/L BUN (7-18) mg/dL Creatinine (0.70-1.30) mg/dL Est Cr Clr Drug Dosing mL/min Estimated GFR (MDRD) BUN/Creatinine Ratio (No establ ref range) Glucose (74-99) mg/dL POC Glucose 264 H 224 H 187 H (83-110) mg/dl Calcium (8.5-10.1) mg/dL Total Bilirubin (0.2-1.0) mg/dL AST (15-37) U/L ALT (16-63) U/L Alkaline Phosphatase (46-116) U/L Total Protein (6.4-8.2) g/dL Albumin (3.4-5.0) g/dL Globulin Albumin/Globulin Ratio Med Orders - Current: Current Medications Acetaminophen (Tylenol) 650 mg PO Q4H PRN PRN Reason: Pain (Mild 1-3)/fever Albuterol (Proventil Hfa) 0 gm INH Q4H PRN PRN Reason: shortness of breath Last Admin: 10/29/19 18:01 Dose: 2 puff Documented by: Amlodipine Besylate (Norvasc) 10 mg PO DAILY [facility] Aspirin (Aspirin) 81 mg PO DAILY [facility] Last Admin: 10/29/19 08:47 Dose: 81 mg Documented by: Atenolol (Tenormin) 100 mg PO BID [facility] Atorvastatin Calcium (Lipitor) 10 mg PO BEDTIME [facility] Calcitriol (Rocaltrol) 0.25 mcg PO DAILY [facility] Last Admin: 10/29/19 08:47 Dose: 0.25 mcg Documented by: Dexamethasone (Dexamethasone) 6 mg PO Q24H [facility] Docusate Sodium (Colace) 100 mg PO BID PRN PRN Reason: Constipation Enoxaparin Sodium (Lovenox) 40 mg SUBCUT Q12H [facility] Last Admin: 10/29/19 08:50 Dose: 40 mg Documented by: Fludrocortisone Acetate (Florinef) 0.1 mg PO Q48H [facility] Furosemide (Lasix) 40 mg IVPUSH DAILY [facility] Last Admin: 10/29/19 09:34 Dose: 40 mg Documented by: Gabapentin (Neurontin) 300 mg PO DAILY PRN PRN Reason: Pain Hydralazine HCl (Apresoline) 50 mg PO TID [facility] Last Admin: 10/29/19 14:46 Dose: 50 mg Documented by: Remdesivir 100 mg/ Sodium (Chloride) 210 mls @ 210 mls/hr IV Q24H [facility] Stop: 11/01/19 20:59 Azithromycin 500 mg/ Sodium (Chloride) 250 mls @ 250 mls/hr IV Q24H [facility] Last Admin: 10/29/19 17:20 Dose: 250 mls/hr Documented by: Ceftriaxone Sodium 1 gm/ (Sodium Chloride) 50 mls @ 100 mls/hr IV Q24H [facility] Last Admin: 10/28/19 22:26 Dose: 100 mls/hr Documented by: Insulin Glargine (Lantus) 22 unit SUBCUT BID [facility] Insulin Human Lispro (Humalog) 0 unit SUBCUT WITHMEALSANDBED [facility]; Protocol Last Admin: 10/29/19 17:18 Dose: 1 unit Documented by: Levothyroxine Sodium (Synthroid) 100 mcg PO [facility] Last Admin: 10/29/19 05:10 Dose: 100 mcg Documented by: Levothyroxine Sodium (Levothyroxine) 75 mcg PO [facility] Last Admin: 10/29/19 05:10 Dose: 75 mcg Documented by: Lorazepam (Ativan) 0.5 mg PO Q8H PRN PRN Reason: anxiety Last Admin: 10/29/19 15:50 Dose: 0.5 mg Documented by: Lorazepam (Ativan) 1 mg PO BEDTIME PRN PRN Reason: insomnia Non-Formulary Medication (Saxagliptin Hcl [Onglyza]) 5 mg PO DAILY [facility] Ondansetron HCl (Zofran) 4 mg IVPUSH Q6H PRN PRN Reason: Nausea/Vomiting Last Admin: 10/29/19 17:33 Dose: 4 mg Documented by: Pioglitazone HCl (Actos) 15 mg PO DAILY [facility] Last Admin: 10/29/19 08:47 Dose: 15 mg Documented by: Sodium Bicarbonate (Sodium Bicarbonate) 650 mg PO BID [facility] Last Admin: 10/29/19 08:46 Dose: 650 mg Documented by: Sodium Chloride (Saline Flush) 10 ml FLUSH ASDIRECTED PRN PRN Reason: Keep Vein Open Last Admin: 10/29/19 17:23 Dose: 10 ml Documented by: Terazosin HCl (Hytrin) 5 mg PO BEDTIME [facility] Discontinued Medications Albuterol (Proventil Hfa) 6.7 gm INH ONETIME ONE Stop: 10/28/19 17:11 Last Admin: 10/28/19 17:22 Dose: 2 puff Documented by: Amlodipine Besylate (Norvasc) 5 mg PO DAILY [facility] Last Admin: 10/29/19 08:46 Dose: 5 mg Documented by: Amlodipine Besylate (Norvasc) 5 mg PO ONETIME ONE Stop: 10/29/19 09:16 Last Admin: 10/29/19 09:35 Dose: 5 mg Documented by: Atenolol (Tenormin) 50 mg PO BID [facility] Last Admin: 10/29/19 08:47 Dose: 50 mg Documented by: Atenolol (Tenormin) 50 mg PO ONETIME ONE Stop: 10/29/19 09:16 Last Admin: 10/29/19 09:34 Dose: 50 mg Documented by: Dexamethasone (Dexamethasone) 6 mg IVPUSH ONETIME ONE Stop: 10/28/19 17:10 Last Admin: 10/28/19 17:20 Dose: 6 mg Documented by: Dexamethasone (Dexamethasone) 6 mg PO Q24H [facility] Azithromycin 500 mg/ Sodium (Chloride) 250 mls @ 250 mls/hr IV ONETIME ONE Stop: 10/28/19 19:29 Last Admin: 10/28/19 18:44 Dose: 250 mls/hr Documented by: Remdesivir 200 mg/ Sodium (Chloride) 210 mls @ 210 mls/hr IV ONETIME ONE Stop: 10/28/19 19:37 Last Admin: 10/28/19 21:18 Dose: 210 mls/hr Documented by: Ceftriaxone Sodium 1 gm/ (Sodium Chloride) 50 mls @ 100 mls/hr IV Q24H [facility] Insulin Glargine (Lantus) 19 unit SUBCUT BID [facility] Last Admin: 10/29/19 08:43 Dose: 19 units Documented by: Insulin Human Lispro (Humalog) 0 unit SUBCUT ASDIRECTED [facility]; Protocol Levothyroxine Sodium (Levothyroxine) 175 mcg PO ACBREAKFAST [facility] Lorazepam (Ativan) 0.5 mg PO ONETIME ONE Stop: 10/28/19 23:38 Last Admin: 10/28/19 23:54 Dose: 0.5 mg Documented by: Potassium Chloride (Klor-Con 10) 40 meq PO ONETIME ONE Stop: 10/28/19 19:51 Last Admin: 10/28/19 21:26 Dose: 40 meq Documented by: Sodium Chloride (Saline Flush) 10 ml FLUSH ASDIRECTED PRN PRN Reason: Keep Vein Open - Exam Quality Assessment: Reports: Supplemental Oxygen General: Reports: Alert, Oriented, Cooperative Lungs: Reports: Decreased Breath Sounds, Wheezing Cardiovascular: Reports: Regular Rate, Regular Rhythm Extremities: Normal Inspection, Normal Range of Motion, Non-Tender, No Pedal Edema, Normal Capillary Refill
[2019-10-29] MEDS ORDERED: cefTRIAXone 1 GM in Sodium Chloride 0.9% 50 ML IV SCH (19:45)
[2019-10-29] MEDS ORDERED: SODIUM CHLORIDE 0.9% IV SCH (20:00)
[2019-10-29] MEDS ORDERED: Dexamethasone 2 MG Tab PO SCH (20:00)
[2019-10-29] MEDS ORDERED: REMDESIVIR IV SCH (20:00)
[2019-10-29] MEDS ORDERED: atorvaSTATin 10 MG Tab PO SCH (21:00)
[2019-10-29] MEDS ORDERED: Terazosin 5 MG Cap PO SCH (21:00)
[2019-10-30] MEDS ORDERED: Fludrocortisone 0.1 MG Tab PO SCH (08:00)
[2019-10-30] MEDS ORDERED: amLODIPine 5 MG Tab PO SCH (09:00)
== END 2019-10-29 18:55 | DRG 177 ==
LOC: DL.ED 17:02 → DL.MS 19:21 → EEVIPCON 19:21
PROVIDERS: ADMIT Hospitalist; ATTEND Hospitalist
PROC: XW033E5 Introduction of Remdesivir Anti-infective into Peripheral Vein, Percutaneous Approach, New Technology Group 5 (ICD-10-PCS; principal; 2019-10-28)
PROC: XW033E5 Introduction of Remdesivir Anti-infective into Peripheral Vein, Percutaneous Approach, New Technology Group 5 (ICD-10-PCS; 2019-10-28)
PROC: 8E0ZXY6 Isolation (ICD-10-PCS; 2019-10-29)
DX: U07.1 COVID-19 (principal); J12.89 Other viral pneumonia; J96.01 Acute respiratory failure with hypoxia; J96.00 Acute respiratory failure, unspecified whether with hypoxia or hypercapnia; H54.7 Unspecified visual loss; I13.0 Hypertensive heart and chronic kidney disease with heart failure and stage 1 through stage 4 chronic kidney disease, or unspecified chronic kidney disease; I50.9 Heart failure, unspecified; E66.01 Morbid (severe) obesity due to excess calories; E78.00 Pure hypercholesterolemia, unspecified; E87.6 Hypokalemia; N18.9 Chronic kidney disease, unspecified; E11.22 Type 2 diabetes mellitus with diabetic chronic kidney disease; N40.0 Benign prostatic hyperplasia without lower urinary tract symptoms; E03.9 Hypothyroidism, unspecified; E66.9 Obesity, unspecified; Z79.82 Long term (current) use of aspirin; Z79.890 Hormone replacement therapy; Z79.4 Long term (current) use of insulin; Z79.899 Other long term (current) drug therapy
CPT/HCPCS: 36415; 36600; 71250; 80053; 82803; 83605; 83880; 84484; 85025; 85379; 85610; 85730; 86140; A9270; J0456; J1100; J7050; 82962; 96365; 96375; 99283; 99285-25; J0696; J1650; J1815-GY; J1940; J2405

== ENCOUNTER 2019-11-23 04:44 | Observation (INO) | payer MEDICARE, OTHER ==
[2019-11-23] MEDS ORDERED: methylPREDNISolone Sodium Succinate 125 MG/2 ML SDV IVPUSH ONE (05:06)
[2019-11-23] MEDS ORDERED: Ketorolac 30 MG/ML SDV IVPUSH ONE (05:06)
--- NOTE | 2019-11-23 05:13 | EDM.PDOC ---
"<Taz Duran - Last Filed: 11/23/19 07:01> ED HPI GENERAL MEDICAL PROBLEM - General Chief Complaint: Back Pain or Injury Stated Complaint: AMBULANCE Time Seen by Provider: 11/23/19 05:00 Source of Information: Reports: Patient History Limitations: Reports: No Limitations - History of Present Illness INITIAL COMMENTS - FREE TEXT/NARRATIVE: This 78 yo male patient was brought to the ED by [facility] due to lower back pain. The patient reports he hurt his lower back about 1 week ago. He has been having a nurse come to his house for therapy (last session was yesterday). The patient reports this morning he has been unable to get out of bed due to the lower back pain. The patient reports his pain is near the belt line and worse on the right. The patient has not been seen by a provider for the injury, but Dr Barrios prescribed him some muscle relaxers last thursday over the phone last dose of this was 2200 last night. The patient reports he has not taken any OTC medications for temporary symptom relief. Duration: Week(s):, Constant, Other (worse this morning) Location: Reports: Back (lower) Quality: Reports: Ache, Sharp Severity: Severe Improves with: Reports: Rest Worsens with: Reports: Movement Context: Reports: Other (unknown) Associated Symptoms: Reports: No Other Symptoms Lower Back Pain Score (Numeric/FACES): 4 - Related Data Allergies Allergy/AdvReac Type Severity Reaction Status Date / Time No Known Allergies Allergy Verified 10/28/19 20:54 Home Meds: Home Meds Aspirin [Neal Chewable Aspirin] 81 mg PO DAILY 12/07/13 [History] Levothyroxine 175 mcg PO ACBREAKFAST 12/07/13 [History] Sodium Bicarbonate 650 mg PO BID 12/07/13 [History] amLODIPine [Norvasc] 5 mg PO DAILY 12/07/13 [History] atenoloL [Atenolol] 50 mg PO BID 12/07/13 [History] atorvaSTATin [Lipitor] 10 mg PO BEDTIME 12/07/13 [History] Insulin Detemir [Levemir Flextouch] 19 units SUBCUT BID 10/22/17 [History] Pioglitazone [Actos] 15 mg PO DAILY 10/22/17 [History] Saxagliptin HCl [Onglyza] 5 mg PO DAILY 10/22/17 [History] Terazosin [Hytrin] 5 mg PO BEDTIME 10/22/17 [History] Fludrocortisone [Florinef] 0.1 mg PO Q48H 10/25/19 [History] Furosemide [Lasix] 40 mg PO DAILY 10/25/19 [History] Gabapentin [Neurontin] 300 mg PO DAILY PRN 10/25/19 [History] calcitrioL [Calcitriol] 0.25 mcg PO DAILY 10/25/19 [History] hydrALAZINE [Apresoline] 50 mg PO TID 10/25/19 [History] LORazepam [Ativan] 0.5 mg PO Q8H PRN 10/29/19 [History] Past Medical History HEENT History: Reports: Hard of Hearing, Impaired Vision Cardiovascular History: Reports: Heart Failure, High Cholesterol, Hypertension Genitourinary History: Reports: BPH, Chronic Renal Insuffiency Endocrine/Metabolic History: Reports: Diabetes, Type II, Hypothyroidism, Obesity/BMI 30+ - Infectious Disease History Infectious Disease History: Reports: Chicken Pox, Novel Coronavirus Other Infectious Disease History: COVID (positive 10/18/2019) - Past Surgical History HEENT Surgical History: Reports: None Cardiovascular Surgical History: Reports: None Male Surgical History: Reports: None Endocrine Surgical History: Reports: None Social & Family History - Family History Family Medical History: Noncontributory - Tobacco Use Smoking Status *Q: Never Smoker Second Hand Smoke Exposure: No - Caffeine Use Caffeine Use: Reports: Coffee - Recreational Drug Use Recreational Drug Use: No - Living Situation & Occupation Living situation: Reports: , with Spouse Occupation: Retired ED ROS GENERAL - Review of Systems Review Of Systems: Comprehensive ROS is negative, except as noted in HPI. ED EXAM,LOWER BACK PAIN/INJURY - Physical Exam Exam: See Below Exam Limited By: No Limitations General Appearance: Alert, WD/WN, Moderate Distress Eye Exam: Bilateral Eye: EOMI, Normal Inspection, PERRL Ears: Normal External Exam, Normal Canal, Hearing Grossly Normal, Normal TMs Nose: Normal Inspection, Normal Mucosa, No Blood Throat/Mouth: Normal Inspection, Normal Lips, Normal Teeth, Normal Gums, Normal Oropharynx, Normal Voice, No Airway Compromise Head: Atraumatic, Normocephalic Neck: Normal Inspection, Supple, Non-Tender, Full Range of Motion Respiratory/Chest: No Respiratory Distress, Lungs Clear, Normal Breath Sounds, No Accessory Muscle Use, Chest Non-Tender Cardiovascular: Normal Peripheral Pulses, Regular Rate, Rhythm, No Edema, No Gallop, No JVD, No Murmur, No Rub GI/Abdominal: Normal Bowel Sounds, Soft, Non-Tender, No Organomegaly, No Distention, No Abnormal Bruit, No Mass (Male) Exam: Deferred Rectal (Males) Exam: Deferred Back Exam: Paraspinal Tenderness (right side) Extremities: Normal Inspection, Normal Range of Motion, Non-Tender, No Pedal Edema, Normal Capillary Refill Neurological: Alert, Normal Mood/Affect, Oriented x 3, Straight Leg Raise (R), Difficulty Walking (due to lower back pain). No: Saddle Anesthesia Psychiatric: Normal Affect, Normal Mood Skin Exam: Warm, Dry, Intact, Normal Color, No Rash Lymphatic: No Adenopathy Course - Re-Assessments/Exams Free Text/Narrative Re-Assessment/Exam: 11/23/19 06:59 Care was transferred to Dr. Kim at shift change. Departure - Departure Disposition: Refer to Observation Clinical Impression: Acute exacerbation of chronic low back pain, Generalized weakness - Discharge Information Forms: ED Department Discharge Sepsis Event Note (ED) - Evaluation Sepsis Screening Result: No Definite Risk <Chaim Kim - Last Filed: 11/23/19 08:28> Course - Vital Signs Last Recorded V/S: Last Vital Signs Temp 98.4 F 11/23/19 04:44 Pulse 74 11/23/19 04:44 Resp 18 11/23/19 04:44 BP 165/57 H 11/23/19 04:44 Pulse Ox 93 L 11/23/19 04:44 - Orders/Labs/Meds Meds: Medications Discontinued Medications Generic Name Dose Route Start Last Admin Trade Name Freq PRN Reason Stop Dose Admin Hydrocodone Bitart/Acetaminophen 1 tab 11/23/19 06:20 11/23/19 06:24 [place] 325-5 Mg PO 11/23/19 06:21 1 tab ONETIME ONE Administration Hydromorphone HCl 1 mg 11/23/19 08:20 Dilaudid IVPUSH 11/23/19 08:21 ONETIME ONE Ketorolac Tromethamine 30 mg 11/23/19 05:06 11/23/19 05:19 Toradol IVPUSH 11/23/19 05:07 30 mg ONETIME ONE Administration Methylprednisolone Sodium Succinate 125 mg 11/23/19 05:06 11/23/19 05:13 Solu-Medrol IVPUSH 11/23/19 05:07 125 mg ONETIME ONE Administration - Radiology Interpretation Free Text/Narrative:: [facility] [place] [facility] Final Radiology Report Call: [phone] assistance Online chat: [email or web address] Name: JOSE ZAVALA Age: 78Years M Date: 11/23/2019 SSN: -- : [id number] Study: CT LUMBAR SPINE WO CONT Requesting Physician: Taz Duran Images: [phone] Addl Studies: Provided Clinical History: Low back pain with right sided sciatica Contrast: Without Contrast Medium: Contrast Amount: Contrast Method: Page 1 of 2 PROCEDURE INFORMATION: Exam: CT Lumbar Spine Without Contrast Exam date and time: 11/23/2019 7:12 AM Age: 78 years old Clinical indication: Low back pain; Additional info: Low back pain with right sided sciatica TECHNIQUE: Imaging protocol: Computed tomography images of the lumbar spine without contrast. Radiation optimization: All CT scans at this facility use at least one of these dose optimization techniques: automated exposure control; mA and/or kV adjustment per patient size (includes targeted exams where dose is matched to clinical indication); or iterative reconstruction. COMPARISON: MR Lumbar Spine Comp wo Cont 09/17/2016 2:06 PM FINDINGS: Vertebrae: No fractures or dislocations. Hypertrophy and degeneration of the facet joints. Normal alignment. Discs/Spinal canal/Neural foramina: [id number] narrowing of the L5-S1 disc space. The remaining disc spaces are maintained. Small marginal endplate osteophytes at multiple levels. Bridging enthesophytes. Ankylosis of the lower thoracic spine. Partial fusion of the sacroiliac joints. Bladder: Markedly distended. Reproductive: The prostate gland measures 5.2 cm in greatest transverse dimension. Soft tissues: Unremarkable. IMPRESSION: 1. No fractures or dislocations. 2. Facet joint degeneration. 3. Degenerative disc disease. 4. Ankylosing spondylitis. JOSE ZAVALA | Final Radiology Report CONFIDENTIALITY STATEMENT This report is intended only for use by the referring physician, and only in accordance with law. If you received this in error, call [phone]. Page 2 of 2 Thank you for allowing us to participate in the care of your patient. Dictated and Authenticated by: Reynaldo Thornton MD 11/23/2019 7:49 AM Central Time ([place] & [place]) - Re-Assessments/Exams Free Text/Narrative Re-Assessment/Exam: 11/23/19 08:24 After medication (Toradol, Solu-Medrol, Hydrocodone) and CT indicating no reason not to attempt moving the pt. However the pt is still too weak and in too much pain to get up from bed or to ambulate without assist. Pt has no resources to assist him at home. Plan to admit pt to obs. for further evaluation of back pain and consult PT. Departure - Departure Time of Disposition: 08:27 (admit to Dr. Hernandez) Condition: Undetermined - Discharge Information *PRESCRIPTION DRUG MONITORING PROGRAM REVIEWED*: No *COPY OF PRESCRIPTION DRUG MONITORING REPORT IN PATIENT PREET: No Sepsis Event Note (ED) - Focused Exam Vital Signs: Vital Signs Temp Pulse Resp BP Pulse Ox 11/23/19 04:44 98.4 F 74 18 165/57 H 93 L"
[2019-11-23] MEDS ORDERED: Acetaminophen/HYDROcodone 325-5 MG Tab PO ONE (06:20)
--- NOTE | 2019-11-23 07:49 | CT ---
PROCEDURE INFORMATION: Exam: CT Lumbar Spine Without Contrast Exam date and time: 11/23/2019 7:12 AM Age: 78 years old Clinical indication: Low back pain; Additional info: Low back pain with right sided sciatica TECHNIQUE: Imaging protocol: Computed tomography images of the lumbar spine without contrast. Radiation optimization: All CT scans at this facility use at least one of these dose optimization techniques: automated exposure control; mA and/or kV adjustment per patient size (includes targeted exams where dose is matched to clinical indication); or iterative reconstruction. COMPARISON: MR Lumbar Spine Comp wo Cont 09/17/2016 2:06 PM FINDINGS: Vertebrae: No fractures or dislocations. Hypertrophy and degeneration of the facet joints. Normal alignment. Discs/Spinal canal/Neural foramina: [id number] narrowing of the L5-S1 disc space. The remaining disc spaces are maintained. Small marginal endplate osteophytes at multiple levels. Bridging enthesophytes. Ankylosis of the lower thoracic spine. Partial fusion of the sacroiliac joints. Bladder: Markedly distended. Reproductive: The prostate gland measures 5.2 cm in greatest transverse dimension. Soft tissues: Unremarkable. IMPRESSION: 1. No fractures or dislocations. 2. Facet joint degeneration. 3. Degenerative disc disease. 4. Ankylosing spondylitis.
[2019-11-23] MEDS ORDERED: HYDROmorphone 1 MG/ML Syringe IVPUSH ONE (08:20)
[2019-11-23] MEDS ORDERED: Ondansetron 4 MG Tab.DIS PO PRN (09:39)
[2019-11-23] MEDS ORDERED: Acetaminophen 325 MG Tab PO PRN (09:39)
[2019-11-23] MEDS ORDERED: HYDROmorphone 1 MG/ML Syringe IVPUSH PRN (09:39)
[2019-11-23] MEDS ORDERED: Ondansetron 4 MG/2 ML SDV IVPUSH PRN (09:39)
[2019-11-23] MEDS ORDERED: Ibuprofen 600 MG Tab PO PRN (09:39)
[2019-11-23] MEDS ORDERED: Gabapentin 300 MG Cap PO PRN (09:44)
[2019-11-23] MEDS: LORazepam 0.5 MG Tab PO PRN ×2 (11:31→21:53)
--- NOTE | 2019-11-23 12:34 | PCM.HP ---
H&P History of Present Illness - General Date of Service: 11/23/19 Admit Problem/Dx: Admission Diagnosis/Problem Admission Diagnosis/Problem Back pain Source of Information: Patient, Old Records, Provider - History of Present Illness Initial Comments - Free Text/Narative: Mr. Lujan is a 78-year-old male with medical history significant for CKD stage III, hypothyroidism, peripheral artery disease status post intervention by vascular surgery and toe amputations, type 2 diabetes on insulin, hypertension, pulmonary hypertension, heart failure with preserved ejection fraction, BPH, chronic back pain, and multiple other comorbidities who presented to the ED with complaints of lower back pain. Patient reports that he was trying to get out of bed when he felt excruciating low back pain. States that he has been unable to get out of bed since. Reports that he has been having worsening back pain for about a week. Spoke with his PCP on Thursday who prescribed him some muscle relaxers. States that his last dose was around 10 PM last night. Denies taking any other medications. Denies any saddle anesthesia, bowel or bladder incontinence, or radicular pain. Reports nausea but denies emesis. Denies chest pain, shortness of breath, fevers, chills, diarrhea, constipation, dysuria, hematuria, or any new symptoms. Reports that he consumes 1 or 2 beers a week. Denies tobacco or illicit drug use. Lower Back Pain Score (Numeric/FACES): 4 - Related Data Allergies/Adverse Reactions: Allergies Allergy/AdvReac Type Severity Reaction Status Date / Time No Known Allergies Allergy Verified 11/23/19 11:42 Home Medications: Home Meds Aspirin [Neal Chewable Aspirin] 81 mg PO DAILY 12/07/13 [History] Levothyroxine 175 mcg PO ACBREAKFAST 12/07/13 [History] Sodium Bicarbonate 650 mg PO BID 12/07/13 [History] amLODIPine [Norvasc] 5 mg PO DAILY 12/07/13 [History] atenoloL [Atenolol] 50 mg PO BID 12/07/13 [History] atorvaSTATin [Lipitor] 20 mg PO BEDTIME 12/07/13 [History] Pioglitazone [Actos] 15 mg PO DAILY 10/22/17 [History] Terazosin [Hytrin] 5 mg PO BEDTIME 10/22/17 [History] Fludrocortisone [Florinef] 0.1 mg PO Q48H 10/25/19 [History] Furosemide [Lasix] 40 mg PO DAILY 10/25/19 [History] Gabapentin [Neurontin] 300 mg PO DAILY PRN 10/25/19 [History] calcitrioL [Calcitriol] 0.25 mcg PO DAILY 10/25/19 [History] hydrALAZINE [Apresoline] 50 mg PO TID 10/25/19 [History] Alogliptin Benzoate [Alogliptin] 12.5 mg PO DAILY 11/23/19 [History] Insuln Asp Prot/Insulin Aspart [NovoLOG Mix 70-30] 19 units SUBCUT BID 11/23/19 [History] Losartan [Cozaar] 25 mg PO DAILY 11/23/19 [History] Past Medical History HEENT History: Reports: Hard of Hearing, Impaired Vision Cardiovascular History: Reports: Heart Failure, High Cholesterol, Hypertension Genitourinary History: Reports: BPH, Chronic Renal Insuffiency Endocrine/Metabolic History: Reports: Diabetes, Type II, Hypothyroidism, Obesity/BMI 30+ - Infectious Disease History Infectious Disease History: Reports: Chicken Pox, Novel Coronavirus Other Infectious Disease History: COVID (positive 10/18/2019) - Past Surgical History HEENT Surgical History: Reports: None Cardiovascular Surgical History: Reports: None Male Surgical History: Reports: None Endocrine Surgical History: Reports: None Social & Family History - Family History Family Medical History: Noncontributory - Tobacco Use Smoking Status *Q: Never Smoker Second Hand Smoke Exposure: No - Caffeine Use Caffeine Use: Reports: Coffee - Recreational Drug Use Recreational Drug Use: No - Living Situation & Occupation Living situation: Reports: , with Spouse Occupation: Retired H&P Review of Systems - Review of Systems: Review Of Systems: Comprehensive ROS is negative, except as noted in HPI. Exam - Exam Exam: See Below - Vital Signs Vital Signs: Last Vital Signs Temp 98.4 F 11/23/19 04:44 Pulse 74 11/23/19 04:44 Resp 18 11/23/19 04:44 BP 165/57 H 11/23/19 04:44 Pulse Ox 93 L 11/23/19 04:44 Weight: 248 lb 5 oz - Exam General: Alert, Oriented, Cooperative, Moderate Distress HEENT: Conjunctiva Clear, EOMI, Hearing Intact, Mucosa Moist & [place] Neck: Supple Lungs: Clear to Auscultation, Normal Respiratory Effort Cardiovascular: Regular Rate, Regular Rhythm Back Exam: Paraspinal Tenderness Extremities: Non-Tender, No Pedal Edema, Other (Right medial leg surgical incision extending from the thigh to the lower leg. Amputation of second and third toes.) Skin: Warm, Dry, Intact Neuro Extensive - Mental Status: Alert, Oriented x3, Normal Mood/Affect Psychiatric: Alert, Normal Affect, Normal Mood - Patient Data Lab Results Last 24 hrs: Laboratory Results - last 24 hr 11/23/19 11/23/19 Range/Units 08:20 12:22 POC Glucose 226 H (83-110) mg/dl Urine Color Yellow (YELLOW) Urine Appearance Clear (CLEAR) Urine pH 6.5 (5.0-9.0) Ur Specific [place] 1.015 (1.005-1.030) Urine Protein 100 H (NEGATIVE) Urine Glucose (UA) Negative (NEGATIVE) Urine Ketones Negative (NEGATIVE) Urine Occult Blood Negative (NEGATIVE) Urine Nitrite Negative (NEGATIVE) Urine Bilirubin Negative (NEGATIVE) Urine Urobilinogen 0.2 (0.2-1.0) mg/dL Ur Leukocyte Esterase Negative (NEGATIVE) Urine RBC Not seen /HPF Urine WBC 0-5 (0-5/HPF) /HPF Ur Epithelial Cells Rare (NOT SEEN) /HPF Urine Bacteria Not seen (0-FEW/HPF) /HPF Urine Mucus Not seen (NOT SEEN) /LPF Urine Other - Problem List (1) Acute exacerbation of chronic low back pain SNOMED Code(s): 216756753 ICD Code: M54.5 - LOW BACK PAIN; G89.29 - OTHER CHRONIC PAIN Status: Acute Current Visit: No (2) CHF (congestive heart failure) SNOMED Code(s): 51466590 ICD Code: I50.9 - HEART FAILURE, UNSPECIFIED Status: Acute Current Visit: No Qualifiers: Heart failure type: unspecified Heart failure chronicity: unspecified Qualified Code(s): I50.9 - Heart failure, unspecified (3) Chronic kidney disease stage 3 SNOMED Code(s): 427841794 ICD Code: N18.3 - CHRONIC KIDNEY DISEASE, STAGE 3 (MODERATE) * DO NOT USE * Status: Acute Current Visit: No (4) Diabetes mellitus SNOMED Code(s): 56977437 ICD Code: E11.9 - TYPE 2 DIABETES MELLITUS WITHOUT COMPLICATIONS Status: Acute Current Visit: No (5) HTN, Essential hypertension SNOMED Code(s): 08694077 ICD Code: I10 - ESSENTIAL (PRIMARY) HYPERTENSION Status: Acute Current Visit: No (6) Interstitial lung disease SNOMED Code(s): 382720863 ICD Code: J84.9 - INTERSTITIAL PULMONARY DISEASE, UNSPECIFIED Status: Acute Current Visit: No Problem List Initiated/Reviewed/Updated: Yes Orders Last 24hrs: Active Orders 24 hr Category Date Time Status Admission Diagnosis [ADT] Routine ADT 11/23/19 08:27 Ordered Admission Status [Patient Status] [ADT] Routine ADT 11/23/19 08:27 Active Blood Glucose Check, Bedside [RC] QIDACANDBED Care 11/23/19 12:23 Ordered Oxygen Therapy [RC] PRN Care 11/23/19 09:40 Active Up With Assistance [RC] ASDIRECTED Care 11/23/19 09:39 Active VTE/DVT Education [RC] PER UNIT ROUTINE Care 11/23/19 09:40 Active Vital Signs [RC] Q4H Care 11/23/19 09:40 Active Regular Diet [DIET] Diet 11/23/19 Breakfast Active Lumbar Spine Comp wo Cont [MR] Routine Exams 11/23/19 09:48 Ordered BASIC METABOLIC PANEL,BMP [CHEM] AM Lab 11/24/19 05:11 Ordered CBC W/O DIFF,HEMOGRAM [HEME] AM Lab 11/24/19 05:11 Ordered MAGNESIUM [CHEM] AM Lab 11/24/19 05:11 Ordered PHOSPHORUS [CHEM] AM Lab 11/24/19 05:11 Ordered Acetaminophen [TylenoL] Med 11/23/19 09:39 Active 650 mg PO Q4H PRN Acetaminophen/oxyCODONE [Percocet 325-5 MG] Med 11/23/19 09:39 Active 2 tab PO Q4H PRN Aspirin Med 11/23/19 09:45 Ordered 81 mg PO DAILY Docusate Sodium/Sennosides [Senna Plus] Med 11/23/19 09:39 Ordered 1 tab PO BEDTIME PRN Fludrocortisone [Florinef] Med 11/23/19 09:45 Ordered 0.1 mg PO Q48H Furosemide [Lasix] Med 11/24/19 09:00 Ordered 40 mg PO DAILY Gabapentin [Neurontin] Med 11/23/19 09:44 Ordered 300 mg PO DAILY PRN HYDROmorphone [Dilaudid] Med 11/23/19 09:39 Ordered 1 mg IVPUSH Q4H PRN Heparin Sodium Med 11/23/19 14:00 Active 5,000 units SUBCUT Q8HR Ibuprofen [Motrin] Med 11/23/19 09:39 Ordered 600 mg PO Q6H PRN Insulin Detemir Med 11/23/19 21:00 Ordered 19 units SUBCUT BID Insulin Lispro [HumaLOG] Med 11/23/19 16:00 Ordered See Protocol SUBCUT BIDAC LORazepam [Ativan] Med 11/23/19 09:44 Active 0.5 mg PO Q8H PRN Levothyroxine Med 11/24/19 06:00 Ordered 175 mcg PO ACBREAKFAST Ondansetron [Zofran ODT] Med 11/23/19 09:39 Ordered 4 mg PO Q6H PRN Ondansetron [Zofran] Med 11/23/19 09:39 Active 4 mg IVPUSH Q6H PRN Sodium Bicarbonate Med 11/23/19 21:00 Ordered 650 mg PO BID Terazosin [Hytrin] Med 11/23/19 21:00 Ordered 5 mg PO BEDTIME amLODIPine [Norvasc] Med 11/23/19 09:45 Ordered 5 mg PO DAILY atenoloL [Tenormin] Med 11/23/19 09:45 Ordered 50 mg PO BID atorvaSTATin [Lipitor] Med 11/23/19 21:00 Ordered 10 mg PO BEDTIME calcitrioL [Rocaltrol] Med 11/24/19 09:00 Ordered 0.25 mcg PO DAILY hydrALAZINE [Apresoline] Med 11/23/19 14:00 Ordered 50 mg PO TID Resuscitation Status Routine Resus Stat 11/23/19 09:39 Ordered Medication Orders Acetaminophen (Tylenol) 650 mg PO Q4H PRN PRN Reason: Pain Amlodipine Besylate (Norvasc) 5 mg PO DAILY [facility] Aspirin (Aspirin) 81 mg PO DAILY [facility] Atenolol (Tenormin) 50 mg PO BID [facility] Atorvastatin Calcium (Lipitor) 10 mg PO BEDTIME [facility] Calcitriol (Rocaltrol) 0.25 mcg PO DAILY [facility] Fludrocortisone Acetate (Florinef) 0.1 mg PO Q48H [facility] Furosemide (Lasix) 40 mg PO DAILY [facility] Gabapentin (Neurontin) 300 mg PO DAILY PRN PRN Reason: Pain Heparin Sodium (Porcine) (Heparin Sodium) 5,000 units SUBCUT Q8HR [facility] Hydromorphone HCl (Dilaudid) 1 mg IVPUSH Q4H PRN PRN Reason: Pain (severe 7-10) Ibuprofen (Motrin) 600 mg PO Q6H PRN PRN Reason: Pain (mild 1-3) Insulin Human Lispro (Humalog) 0 unit SUBCUT BIDAC [facility]; Protocol Levothyroxine Sodium (Levothyroxine) 175 mcg PO ACBREAKFAST [facility] Lorazepam (Ativan) 0.5 mg PO Q8H PRN PRN Reason: Anxiety Last Admin: 11/23/19 11:31 Dose: 0.5 mg Documented by: KYREE Non-Formulary Medication (Hydralazine [Apresoline]) 50 mg PO TID [facility] Non-Formulary Medication (Insulin Detemir) 19 units SUBCUT BID [facility] Ondansetron HCl (Zofran Odt) 4 mg PO Q6H PRN PRN Reason: nausea, able to take PO Ondansetron HCl (Zofran) 4 mg IVPUSH Q6H PRN PRN Reason: Nausea/Vomiting Oxycodone/Acetaminophen (Percocet 325-5 Mg) 2 tab PO Q4H PRN PRN Reason: Pain (moderate 4-6) Senna/Docusate Sodium (Senna Plus) 1 tab PO BEDTIME PRN PRN Reason: Constipation Sodium Bicarbonate (Sodium Bicarbonate) 650 mg PO BID [facility] Terazosin HCl (Hytrin) 5 mg PO BEDTIME [facility] Assessment/Plan Comment:: #Acute exacerbation of chronic low back pain: Patient reports excruciating low back pain that is limiting his ability to transfer out of bed. -CT of the lumbar spine negative -Obtain MRI -PT and OT PRN pain regimen #Hypertension #CHF Continue home medications #Diabetes Continue home insulin regimen Sliding scale insulin hypoglycemia protocol Diabetic diet #Hypothyroidism Continue home medications #CKD stage III Obtain renal function panel DVT prophylaxis: Heparin GI prophylaxis: Diabetic diet CODE STATUS: Full code per patient preference
--- NOTE | 2019-11-23 12:58 | MR ---
EXAMINATION: Lumbar Spine Comp wo Cont SEX: Male AGE: 78 years CLINICAL HISTORY: 78-year-old 240 pound male with persistent low back pain. CT scan lumbar spine 23 November 2019 confirmed "facet joint degeneration; degenerative disc disease; ankylosing spondylitis (lower thoracic spine and fusion sacroiliac joints), but no fractures or dislocation". Scan technique: Sagittal T1/T2/T2 fat saturation and unenhanced axial T1/T2 magnetic resonance images lumbar spine obtained with patient lying supine on the [place] 1.[employer] magnet [place], [place]. All data archived in the PACS system for storage, reformatting and study. Interpretation: Abnormal. 1. Signs of chronic multilevel lumbar disc degeneration i.e. desiccation nearly all levels and flattening nucleus pulposus intervertebral discs at the lowest L5-S1 level. 2. Hypertrophic marginal spondylosis. Reactive changes particularly facets and adjacent endplates L5-S1. 3. No sign of pathologic skeletal lesion, lumbar fracture or dislocation (spondylolisthesis). Hemangioma T12. Capacious bony spinal canal volume. No intracanalicular soft tissue tumor mass. 5. *Prominent annular subligamentous disc "bulge" posteriorly, at the lowest L5-S1 level. 6. No surgical disc herniation or extruded "free" intracanalicular disc fragment. 7. No adhesions of the cauda equina. No congenital nerve root cysts. CONCLUSION: Hypertrophic spondylosis. Chronic multilevel disc degeneration. Prominent disc bulge (versus focal intraligamentous herniation) L5-S1 level.
[2019-11-23] MEDS: Heparin Sodium 5,000 Units/ML Vial SUBCUT SCH ×2 (13:47→21:52)
[2019-11-23] MEDS: Acetaminophen/oxyCODONE 325-5 MG Tab PO PRN ×2 (13:50→20:27)
[2019-11-23] MEDS: Atenolol 50 MG Tab PO SCH ×2 (14:50→20:25)
[2019-11-23] MEDS: Aspirin 81 MG Tab.Chew PO SCH (14:50)
[2019-11-23] MEDS: hydrALAZINE 25 MG Tab PO SCH ×2 (14:50→20:26)
[2019-11-23] MEDS: amLODIPine 5 MG Tab PO SCH (14:50)
[2019-11-23] MEDS ORDERED: Insulin Lispro 100 Units/ML 3 ML Vial SUBCUT SCH (16:00)
[2019-11-23] MEDS ORDERED: Cyclobenzaprine 10 MG Tab PO PRN (19:46)
[2019-11-23] MEDS ORDERED: Melatonin 3 MG Tab PO PRN (19:47)
[2019-11-23] MEDS: Sodium Bicarbonate 650 MG Tab PO SCH (20:25)
[2019-11-23] MEDS ORDERED: Terazosin 5 MG Cap PO SCH (21:00)
[2019-11-23] MEDS ORDERED: Insulin Glarg,Human.Rec.Analog 100 Unit/ML SUBCUT SCH (21:00)
[2019-11-23] MEDS ORDERED: atorvaSTATin 10 MG Tab PO SCH (21:00)
[2019-11-23] MEDS: Insulin Glarg,Human.Rec.Analog 100 Unit/ML SUBCUT SCH (21:51)
[2019-11-24] MEDS: Heparin Sodium 5,000 Units/ML Vial SUBCUT SCH (05:38)
[2019-11-24] MEDS ORDERED: Levothyroxine 25 MCG Tab PO SCH (06:00)
[2019-11-24] MEDS ORDERED: Levothyroxine 150 MCG Tab PO SCH (06:00)
[2019-11-24 07:07] LABS: ANION GAP 11.4 mEq/L (7-13)
[2019-11-24 07:30] VITALS: BP 130/52; PULSE 71
[2019-11-24] MEDS ORDERED: Insulin Lispro 100 Units/ML 3 ML Vial SUBCUT SCH (08:00)
[2019-11-24] MEDS ORDERED: Fludrocortisone 0.1 MG Tab PO SCH (09:00)
[2019-11-24] MEDS ORDERED: Furosemide 40 MG Tab PO SCH (09:00)
[2019-11-24] MEDS ORDERED: Calcitriol 0.25 MCG Cap PO SCH (09:00)
[2019-11-24] MEDS: Insulin Glarg,Human.Rec.Analog 100 Unit/ML SUBCUT SCH (09:44)
[2019-11-24] MEDS: Sodium Bicarbonate 650 MG Tab PO SCH (09:46)
[2019-11-24] MEDS: hydrALAZINE 25 MG Tab PO SCH (09:47)
[2019-11-24] MEDS: Atenolol 50 MG Tab PO SCH (09:48)
[2019-11-24] MEDS: amLODIPine 5 MG Tab PO SCH (09:49)
[2019-11-24] MEDS: Aspirin 81 MG Tab.Chew PO SCH (09:50)
--- NOTE | 2019-11-24 10:57 | PCM.DCSUM1 ---
Discharge Summary - Hospital Course Free Text/Narrative:: Mr. Lujan is a 78-year-old male with medical history significant for CKD stage III, hypothyroidism, peripheral artery disease status post intervention by vascular surgery and toe amputations, type 2 diabetes on insulin, hypertension, pulmonary hypertension, heart failure with preserved ejection fraction, BPH, chronic back pain, and multiple other comorbidities who was admitted for intractable back pain. CT lumbar spine was unrevealing. MRI lumbar spine was obtained with showed degenerative disc disease and prominent disc bulge at L5- S1. Patient was started on pain regimen. Back pain slowly improved with flexeril. He was able ambulate with physical therapy. Due to debilitating back pain, patient will need home health services including home health nursing for medication management and physical therapy for training in home exercise program for strengthening. He is to follow up with PCP. If back pain not resolved with therapy, PCP should refer to neurosurgery. HPI Initial Comments: Mr. Lujan is a 78-year-old male with medical history significant for CKD stage III, hypothyroidism, peripheral artery disease status post intervention by vascular surgery and toe amputations, type 2 diabetes on insulin, hypertension, pulmonary hypertension, heart failure with preserved ejection fraction, BPH, chronic back pain, and multiple other comorbidities who presented to the ED with complaints of lower back pain. Patient reports that he was trying to get out of bed when he felt excruciating low back pain. States that he has been unable to get out of bed since. Reports that he has been having worsening back pain for about a week. Spoke with his PCP on Thursday who prescribed him some muscle relaxers. States that his last dose was around 10 PM last night. Denies taking any other medications. Denies any saddle anesthesia, bowel or bladder incontinence, or radicular pain. Reports nausea but denies emesis. Denies chest pain, shortness of breath, fevers, chills, diarrhea, constipation, dy suria, hematuria, or any new symptoms. Reports that he consumes 1 or 2 beers a week. Denies tobacco or illicit drug use. Diagnosis: Stroke: No - Discharge Data Discharge Date: 11/24/19 Discharge Disposition: Home, Self-Care 01 Condition: Good - Referral to Home Health Date of Face to Face Encounter: 11/24/19 Reason for Homebound Status: Back pain limiting mobility and need for caregiver. Primary Care Physician: PCP Unobtainable Skilled Need: Home health nursing and home physical therapy. - Discharge Diagnosis/Problem(s) (1) Acute exacerbation of chronic low back pain SNOMED Code(s): 406999436 ICD Code: M54.5 - LOW BACK PAIN; G89.29 - OTHER CHRONIC PAIN Status: Acute Current Visit: No (2) CHF (congestive heart failure) SNOMED Code(s): 81556853 ICD Code: I50.9 - HEART FAILURE, UNSPECIFIED Status: Acute Current Visit: No Qualifiers: Heart failure type: unspecified Heart failure chronicity: unspecified Qualified Code(s): I50.9 - Heart failure, unspecified (3) Chronic kidney disease stage 3 SNOMED Code(s): 377538261 ICD Code: N18.3 - CHRONIC KIDNEY DISEASE, STAGE 3 (MODERATE) * DO NOT USE * Status: Acute Current Visit: No (4) Diabetes mellitus SNOMED Code(s): 51559503 ICD Code: E11.9 - TYPE 2 DIABETES MELLITUS WITHOUT COMPLICATIONS Status: Acute Current Visit: No (5) HTN, Essential hypertension SNOMED Code(s): 72764152 ICD Code: I10 - ESSENTIAL (PRIMARY) HYPERTENSION Status: Acute Current Visit: No (6) Interstitial lung disease SNOMED Code(s): 400333189 ICD Code: J84.9 - INTERSTITIAL PULMONARY DISEASE, UNSPECIFIED Status: Acute Current Visit: No - Patient Summary/Data Consults: Consultations 11/24/19 08:44 OT Evaluation and Treatment [CONS] Routine PT Evaluation and Treatment [CONS] Routine - Discharge Plan *PRESCRIPTION DRUG MONITORING PROGRAM REVIEWED*: No *COPY OF PRESCRIPTION DRUG MONITORING REPORT IN PATIENT PREET: No Prescriptions/Med Rec: Cyclobenzaprine [Flexeril] 10 mg PO TID PRN #30 tablet PRN Reason: Spasms Home Medications: Home Meds Aspirin [Neal Chewable Aspirin] 81 mg PO DAILY 12/07/13 [History] Levothyroxine 175 mcg PO ACBREAKFAST 12/07/13 [History] Sodium Bicarbonate 650 mg PO BID 12/07/13 [History] amLODIPine [Norvasc] 5 mg PO DAILY 12/07/13 [History] atenoloL [Atenolol] 50 mg PO BID 12/07/13 [History] atorvaSTATin [Lipitor] 20 mg PO BEDTIME 10/22/14 [History] Pioglitazone [Actos] 15 mg PO DAILY 10/22/17 [History] Terazosin [Hytrin] 5 mg PO BEDTIME 10/22/17 [History] Fludrocortisone [Florinef] 0.1 mg PO Q48H 10/25/19 [History] Furosemide [Lasix] 40 mg PO DAILY 10/25/19 [History] Gabapentin [Neurontin] 300 mg PO DAILY PRN 10/25/19 [History] calcitrioL [Calcitriol] 0.25 mcg PO DAILY 10/25/19 [History] hydrALAZINE [Apresoline] 50 mg PO TID 10/25/19 [History] Alogliptin Benzoate [Alogliptin] 12.5 mg PO DAILY 11/23/19 [History] Insuln Asp Prot/Insulin Aspart [NovoLOG Mix 70-30] 19 units SUBCUT BID 11/23/19 [History] Losartan [Cozaar] 25 mg PO DAILY 11/23/19 [History] Cyclobenzaprine [Flexeril] 10 mg PO TID PRN #30 tablet 11/24/19 [Rx] Patient Handouts: Cyclobenzaprine tablets Referrals: Vin Dinero MD [Physician] - - Discharge Summary/Plan Comment DC Time >30 min.: Yes - General Info Date of Service: 11/24/19 Admission Dx/Problem (Free Text: Admission Diagnosis/Problem Admission Diagnosis/Problem Back pain Subjective Update: No acute events overnight. Reports back pain is resolved. Was able to work with PT today. Denies f/c, n/v/d/c, dysuria, hematuria, or any new symptoms. - Patient Data Vitals - Most Recent: Last Vital Signs Temp 99.2 F 11/24/19 08:00 Pulse 71 11/24/19 09:48 Resp 18 11/24/19 08:00 BP 130/52 L 11/24/19 09:49 Pulse Ox 92 L 11/24/19 08:00 Weight - Most Recent: 248 lb 5 oz I&O - Last 24 hours: Intake & Output 11/23/19 11/24/19 11/24/19 22:59 06:59 14:59 Intake Total 1000 200 200 Balance 1000 200 200 Lab Results - Last 24 hrs: Laboratory Results - last 24 hr 11/23/19 11/23/19 11/23/19 Range/Units 12:22 17:01 20:52 WBC (5.0-10.0) 10^3/uL RBC (4.6-6.2) 10^6/uL Hgb (14.0-18.0) g/dL Hct (40.0-54.0) % MCV (80-100) fL MCH (27.0-34.0) pg MCHC (33.0-35.0) g/dL Plt Count (150-450) 10^3/uL Sodium (136-145) mmol/L Potassium (3.5-5.1) mmol/L Chloride (98-107) mmol/L Carbon Dioxide (21-32) mmol/L Anion Gap (7-13) mEq/L BUN (7-18) mg/dL Creatinine (0.70-1.30) mg/dL Est Cr Clr Drug Dosing mL/min Estimated GFR (MDRD) Glucose (74-99) mg/dL POC Glucose 226 H 277 H 308 H (83-110) mg/dl Calcium (8.5-10.1) mg/dL Phosphorus (2.6-4.7) mg/dL Magnesium (1.8-2.4) mg/dL 11/24/19 11/24/19 11/24/19 Range/Units 06:30 06:30 07:39 WBC 6.1 (5.0-10.0) 10^3/uL RBC 3.38 L (4.6-6.2) 10^6/uL Hgb 9.6 L D (14.0-18.0) g/dL Hct 30.8 L (40.0-54.0) % MCV 91.1 D (80-100) fL MCH 28.4 (27.0-34.0) pg MCHC 31.2 L (33.0-35.0) g/dL Plt Count 193 (150-450) 10^3/uL Sodium 143 (136-145) mmol/L Potassium 4.4 (3.5-5.1) mmol/L Chloride 105 (98-107) mmol/L Carbon Dioxide 31 (21-32) mmol/L Anion Gap 11.4 (7-13) mEq/L BUN 31 H (7-18) mg/dL Creatinine 1.75 H (0.70-1.30) mg/dL Est Cr Clr Drug Dosing 34.23 mL/min Estimated GFR (MDRD) 38 Glucose 160 H (74-99) mg/dL POC Glucose 153 H (83-110) mg/dl Calcium 8.3 L (8.5-10.1) mg/dL Phosphorus 4.2 (2.6-4.7) mg/dL Magnesium 2.0 (1.8-2.4) mg/dL Med Orders - Current: Current Medications Acetaminophen (Tylenol) 650 mg PO Q4H PRN PRN Reason: Pain Last Admin: 11/24/19 09:54 Dose: 650 mg Documented by: Amlodipine Besylate (Norvasc) 5 mg PO DAILY [facility] Last Admin: 11/24/19 09:49 Dose: 5 mg Documented by: Aspirin (Aspirin) 81 mg PO DAILY [facility] Last Admin: 11/24/19 09:50 Dose: 81 mg Documented by: Atenolol (Tenormin) 50 mg PO BID [facility] Last Admin: 11/24/19 09:48 Dose: 50 mg Documented by: Atorvastatin Calcium (Lipitor) 10 mg PO BEDTIME [facility] Last Admin: 11/23/19 20:26 Dose: 10 mg Documented by: Calcitriol (Rocaltrol) 0.25 mcg PO DAILY [facility] Last Admin: 11/24/19 09:45 Dose: 0.25 mcg Documented by: Cyclobenzaprine HCl (Flexeril) 10 mg PO TID PRN PRN Reason: Spasms Last Admin: 11/23/19 20:27 Dose: 10 mg Documented by: Fludrocortisone Acetate (Florinef) 0.1 mg PO Q48H [facility] Last Admin: 11/24/19 09:47 Dose: 0.1 mg Documented by: Furosemide (Lasix) 40 mg PO DAILY [facility] Last Admin: 11/24/19 09:49 Dose: 40 mg Documented by: Gabapentin (Neurontin) 300 mg PO DAILY PRN PRN Reason: Pain Heparin Sodium (Porcine) (Heparin Sodium) 5,000 units SUBCUT Q8HR [facility] Last Admin: 11/24/19 05:38 Dose: 5,000 units Documented by: Hydralazine HCl (Apresoline) 50 mg PO TID [facility] Last Admin: 11/24/19 09:47 Dose: 50 mg Documented by: Hydromorphone HCl (Dilaudid) 1 mg IVPUSH Q4H PRN PRN Reason: Pain (severe 7-10) Insulin Glargine (Lantus) 19 unit SUBCUT BID [facility] Last Admin: 11/24/19 09:44 Dose: 19 unit Documented by: Insulin Human Lispro (Humalog) 0 unit SUBCUT 0800,1800 [facility]; Protocol Last Admin: 11/24/19 07:57 Dose: 2 units Documented by: Levothyroxine Sodium (Levothyroxine) 150 mcg PO ACBREAKFAST [facility] Last Admin: 11/24/19 05:39 Dose: 150 mcg Documented by: Levothyroxine Sodium (Levothyroxine) 25 mcg PO ACBRK [facility] Last Admin: 11/24/19 05:39 Dose: 25 mcg Documented by: Lorazepam (Ativan) 0.5 mg PO Q8H PRN PRN Reason: Anxiety Last Admin: 11/23/19 21:53 Dose: 0.5 mg Documented by: Melatonin (Melatonin) 9 mg PO BEDTIME PRN PRN Reason: Sleep Last Admin: 11/23/19 21:54 Dose: 9 mg Documented by: Ondansetron HCl (Zofran Odt) 4 mg PO Q6H PRN PRN Reason: nausea, able to take PO Ondansetron HCl (Zofran) 4 mg IVPUSH Q6H PRN PRN Reason: Nausea/Vomiting Last Admin: 11/23/19 13:41 Dose: 4 mg Documented by: Oxycodone/Acetaminophen (Percocet 325-5 Mg) 2 tab PO Q4H PRN PRN Reason: Pain (moderate 4-6) Last Admin: 11/23/19 20:27 Dose: 2 tab Documented by: Senna/Docusate Sodium (Senna Plus) 1 tab PO BEDTIME PRN PRN Reason: Constipation Sodium Bicarbonate (Sodium Bicarbonate) 650 mg PO BID [facility] Last Admin: 11/24/19 09:46 Dose: 650 mg Documented by: Terazosin HCl (Hytrin) 5 mg PO BEDTIME [facility] Last Admin: 11/23/19 20:25 Dose: 5 mg Documented by: Discontinued Medications Hydrocodone Bitart/Acetaminophen ([place] 325-5 Mg) 1 tab PO ONETIME ONE Stop: 11/23/19 06:21 Last Admin: 11/23/19 06:24 Dose: 1 tab Documented by: Hydromorphone HCl (Dilaudid) 1 mg IVPUSH ONETIME ONE Stop: 11/23/19 08:21 Last Admin: 11/23/19 08:29 Dose: 1 mg Documented by: Ibuprofen (Motrin) 600 mg PO Q6H PRN PRN Reason: Pain (mild 1-3) Insulin Glargine (Lantus) 19 unit SUBCUT BID [facility] Insulin Human Lispro (Humalog) 0 unit SUBCUT BIDAC [facility]; Protocol Last Admin: 11/23/19 17:20 Dose: 6 units Documented by: Ketorolac Tromethamine (Toradol) 30 mg IVPUSH ONETIME ONE Stop: 11/23/19 05:07 Last Admin: 11/23/19 05:19 Dose: 30 mg Documented by: Methylprednisolone Sodium Succinate (Solu-Medrol) 125 mg IVPUSH ONETIME ONE Stop: 11/23/19 05:07 Last Admin: 11/23/19 05:13 Dose: 125 mg Documented by: - Exam General: Reports: Alert, Oriented, Cooperative, Mild Distress HEENT: Reports: Pupils Equal, Pupils Reactive, Mucous Membr. Moist/Jette Neck: Reports: Supple Lungs: Reports: Clear to Auscultation Cardiovascular: Reports: Regular Rate, Regular Rhythm GI/Abdominal Exam: Normal Bowel Sounds, Soft, Non-Tender, No Distention Extremities: Normal Inspection, Non-Tender, No Pedal Edema Skin: Reports: Warm, Dry, Intact Neurological: Reports: No New Focal Deficit Psy/Mental Status: Reports: Alert, Normal Affect, Normal Mood
== END 2019-11-24 12:05 | disposition home or self-care (01) ==
LOC: DL.ED 04:44 → DL.MS 08:27
PROVIDERS: ADMIT Internal Medicine; ATTEND Internal Medicine
DX: G89.29 Other chronic pain (principal); M54.5 Low back pain; I13.0 Hypertensive heart and chronic kidney disease with heart failure and stage 1 through stage 4 chronic kidney disease, or unspecified chronic kidney disease; E11.22 Type 2 diabetes mellitus with diabetic chronic kidney disease; N18.30 Chronic kidney disease, stage 3 unspecified; E11.51 Type 2 diabetes mellitus with diabetic peripheral angiopathy without gangrene; J84.9 Interstitial pulmonary disease, unspecified; I27.20 Pulmonary hypertension, unspecified; Z79.899 Other long term (current) drug therapy; Z79.82 Long term (current) use of aspirin; Z79.890 Hormone replacement therapy; Z86.19 Personal history of other infectious and parasitic diseases
CPT/HCPCS: 36415; 72131; 72148; 80048; 81001; 82962; 83735; 84100; 85027; 96374; 96375; 97162; 97165; 99285; A9270; J1170; J1644; J1815; J1885; J2405; J2930; 96372; G0378

== ENCOUNTER 2019-11-30 10:57 | Emergency (ER) | payer MEDICARE, OTHER ==
[2019-11-30 10:59] VITALS: BP 134/48; PULSE 78
--- NOTE | 2019-11-30 11:25 | EDM.PDOC ---
ED HPI GENERAL MEDICAL PROBLEM - General Chief Complaint: Back Pain or Injury Stated Complaint: AMBULANCE Time Seen by Provider: 11/30/19 11:00 Source of Information: Reports: Patient, Old Records, RN, RN Notes Reviewed History Limitations: Reports: No Limitations - History of Present Illness INITIAL COMMENTS - FREE TEXT/NARRATIVE: Patient presents to the ED via ambulance with complaints of intractable back pain. Per the patients report he attempted to get out of bed this morning, but his legs were too stiff and his back was spasming too much to move. He states he took his previously prescribed Flexeril 10mg PO x1 prior to the ambulance arriving and his pain is much improved; he rates it at a 3/10 on a verbal scale. He denies saddle paraesthesia, incontinence of bowel/bladder, dysuria, hematuria, melena, or dark tarry stools. He states the pain in his lower back is not worse than it has been in the past. It radiates into his posterior legs, similar to before, but does not radiate into her anterior thighs. Patient states he does have a consultation with a neurosurgeon regarding his known lumbar disk bulge. Lower Back Pain Score (Numeric/FACES): 4 - Related Data Allergies Allergy/AdvReac Type Severity Reaction Status Date / Time No Known Allergies Allergy Verified 11/23/19 11:42 Home Meds: Home Meds Aspirin [Neal Chewable Aspirin] 81 mg PO DAILY 12/07/13 [History] Levothyroxine 175 mcg PO ACBREAKFAST 12/07/13 [History] Sodium Bicarbonate 650 mg PO BID 12/07/13 [History] amLODIPine [Norvasc] 5 mg PO DAILY 12/07/13 [History] atenoloL [Atenolol] 50 mg PO BID 12/07/13 [History] atorvaSTATin [Lipitor] 20 mg PO BEDTIME 12/07/13 [History] Pioglitazone [Actos] 15 mg PO DAILY 10/22/17 [History] Terazosin [Hytrin] 5 mg PO BEDTIME 10/22/17 [History] Fludrocortisone [Florinef] 0.1 mg PO Q48H 10/25/19 [History] Furosemide [Lasix] 40 mg PO DAILY 10/25/19 [History] Gabapentin [Neurontin] 300 mg PO DAILY PRN 10/25/19 [History] calcitrioL [Calcitriol] 0.25 mcg PO DAILY 10/25/19 [History] hydrALAZINE [Apresoline] 50 mg PO TID 10/25/19 [History] Alogliptin Benzoate [Alogliptin] 12.5 mg PO DAILY 11/23/19 [History] Insuln Asp Prot/Insulin Aspart [NovoLOG Mix 70-30] 19 units SUBCUT BID 11/23/19 [History] Losartan [Cozaar] 25 mg PO DAILY 11/23/19 [History] Cyclobenzaprine [Flexeril] 10 mg PO TID PRN #30 tablet 11/24/19 [Rx] Past Medical History HEENT History: Reports: Hard of Hearing, Impaired Vision Cardiovascular History: Reports: Heart Failure, High Cholesterol, Hypertension Genitourinary History: Reports: BPH, Chronic Renal Insuffiency Endocrine/Metabolic History: Reports: Diabetes, Type II, Hypothyroidism, Obesity/BMI 30+ - Infectious Disease History Infectious Disease History: Reports: Other (See Below) Other Infectious Disease History: COVID (positive 10/18/2019) - Past Surgical History HEENT Surgical History: Reports: None Cardiovascular Surgical History: Reports: None Male Surgical History: Reports: None Endocrine Surgical History: Reports: None Social & Family History - Family History Family Medical History: Noncontributory - Tobacco Use Tobacco Use Status *Q: Never Tobacco User - Caffeine Use Caffeine Use: Reports: Coffee - Recreational Drug Use Recreational Drug Use: No - Living Situation & Occupation Living situation: Reports: , with Spouse Occupation: Retired ED ROS GENERAL - Review of Systems Review Of Systems: Comprehensive ROS is negative, except as noted in HPI. ED EXAM,LOWER BACK PAIN/INJURY - Physical Exam Exam: See Below Exam Limited By: Altered Mental Status General Appearance: Alert, WD/WN, No Apparent Distress GI/Abdominal: Normal Bowel Sounds, Soft, Non-Tender, No Organomegaly, No Distention, No Mass (Male) Exam: Deferred Rectal (Males) Exam: Deferred Back Exam: Normal Inspection, Decreased Range of Motion (Sore with movement. ), Muscle Spasm, Vertebral Tenderness. No: CVA Tenderness (L), CVA Tenderness (R), Paraspinal Tenderness Extremities: Normal Capillary Refill, Pedal Edema (+3 RLE; +2 LLE), Limited Range of Motion. No: Redness Neurological: Alert, Oriented x 3, Withdraws to Pain. No: Saddle Anesthesia Skin Exam: Warm, Dry, Intact, Normal Color, No Rash. No: Ecchymosis, Erythema, Petechiae, Rash Course - Vital Signs Last Recorded V/S: Last Vital Signs Temp 97.8 F 11/30/19 10:58 Pulse 78 11/30/19 10:58 Resp 16 11/30/19 10:58 BP 134/48 L 11/30/19 10:58 Pulse Ox 100 11/30/19 10:58 - Orders/Labs/Meds Meds: Medications Discontinued Medications Generic Name Dose Route Start Last Admin Trade Name Freq PRN Reason Stop Dose Admin Hydrocodone Bitart/Acetaminophen 1 tab 11/30/19 11:38 11/30/19 11:45 Kenefic 325-10 Mg PO 11/30/19 11:39 1 tab ONETIME ONE Administration - Re-Assessments/Exams Free Text/Narrative Re-Assessment/Exam: 11/30/19 11:30 Will administer Kenefic 10mg PO x1. 11/30/19 13:18 Pain medication working well. Patient up to side of bed. Will discharge home with understanding that he needs to medication right away in the morning. Departure - Departure Time of Disposition: 13:20 Disposition: Home, Self-Care 01 Condition: Good Clinical Impression: Low back pain Qualifiers: Chronicity: chronic Back pain laterality: bilateral Sciatica presence: without sciatica Qualified Code(s): M54.5 - Low back pain - Discharge Information *PRESCRIPTION DRUG MONITORING PROGRAM REVIEWED*: Not Applicable *COPY OF PRESCRIPTION DRUG MONITORING REPORT IN PATIENT PREET: Not Applicable Forms: ED Department Discharge Additional Instructions: Keep Flexeril and pain medication on right stand, take immediately upon awakening. Wait to move until you have given those medication time to work. Keep appointment with neurosurgeon. Return to primary care office or ED with any loss of bowel/bladder control or with any loss of sensation to your legs. Sepsis Event Note (ED) - Evaluation Sepsis Screening Result: No Definite Risk - Focused Exam Vital Signs: Vital Signs Temp Pulse Resp BP Pulse Ox 11/30/19 10:58 97.8 F 78 16 134/48 L 100
[2019-11-30] MEDS ORDERED: Acetaminophen/HYDROcodone 325-10 MG Tab PO ONE (11:38)
== END 2019-11-30 13:53 | disposition home or self-care (01) ==
LOC: DL.ED 10:57
DX: M54.5 Low back pain (principal); I11.0 Hypertensive heart disease with heart failure; I50.9 Heart failure, unspecified; E78.00 Pure hypercholesterolemia, unspecified; E03.9 Hypothyroidism, unspecified; E11.9 Type 2 diabetes mellitus without complications; Z79.4 Long term (current) use of insulin; Z79.899 Other long term (current) drug therapy; Z79.82 Long term (current) use of aspirin
CPT/HCPCS: 99284; A9270

== ENCOUNTER 2019-12-02 10:00 | Emergency (ER) | payer MEDICARE, OTHER ==
[2019-12-02 11:02] VITALS: BP 111/46; PULSE 81
--- NOTE | 2019-12-02 11:27 | EDM.PDOC ---
ED HPI GENERAL MEDICAL PROBLEM - General Chief Complaint: Genitourinary Problem Stated Complaint: DR MORAN WANTED HIM TO BE SEEN IN ER Time Seen by Provider: 12/02/19 11:15 Source of Information: Reports: Patient History Limitations: Reports: No Limitations - History of Present Illness INITIAL COMMENTS - FREE TEXT/NARRATIVE: This 78 yo male patient reports to the ED due to one episode of urinary incontinence (last night during sleep). The patient reports he has been able to control his urine today and has gone to the bathroom 2 times. The patient has been seen multiple times over since 11/23/19 for low back pain and immobility. The patient has had a CT of his lumbar spine, an MRI of his lower back (demonstrating a bulging disk) and a ultrasound of the lower extremities. The patient is currently on steroids, Tramadol and a muscle relaxer. The patient has a pain management consult on 12/07/19 with Elzbieta Nelson. The patient was advised to come to the ED due to having a "normal" UA today, but no additional treatments or visits. The patient reports he continues to have increased lower back and lower extremity pain with movement. The patient has been able to ambulate at home (lives in his own apartment) with the use of a walker. Onset: Unknown/Unsure (during the night) Location: Reports: Back, Lower Extremity, Left, Lower Extremity, Right Quality: Reports: Ache Severity: Moderate Improves with: Reports: None Worsens with: Reports: None Context: Reports: Other Associated Symptoms: Reports: No Other Symptoms - Related Data Allergies Allergy/AdvReac Type Severity Reaction Status Date / Time No Known Allergies Allergy Verified 12/02/19 10:20 Home Meds: Home Meds Aspirin [Neal Chewable Aspirin] 81 mg PO DAILY 12/07/13 [History] Levothyroxine 175 mcg PO ACBREAKFAST 12/07/13 [History] Sodium Bicarbonate 650 mg PO BID 12/07/13 [History] amLODIPine [Norvasc] 5 mg PO DAILY 12/07/13 [History] atenoloL [Atenolol] 50 mg PO BID 12/07/13 [History] atorvaSTATin [Lipitor] 20 mg PO BEDTIME 12/07/13 [History] Pioglitazone [Actos] 15 mg PO DAILY 10/22/17 [History] Terazosin [Hytrin] 5 mg PO BEDTIME 10/22/17 [History] Fludrocortisone [Florinef] 0.1 mg PO Q48H 10/25/19 [History] Furosemide [Lasix] 40 mg PO DAILY 10/25/19 [History] Gabapentin [Neurontin] 300 mg PO DAILY PRN 10/25/19 [History] calcitrioL [Calcitriol] 0.25 mcg PO DAILY 10/25/19 [History] hydrALAZINE [Apresoline] 50 mg PO TID 10/25/19 [History] Alogliptin Benzoate [Alogliptin] 12.5 mg PO DAILY 11/23/19 [History] Insuln Asp Prot/Insulin Aspart [NovoLOG Mix 70-30] 19 units SUBCUT BID 11/23/19 [History] Losartan [Cozaar] 25 mg PO DAILY 11/23/19 [History] Cyclobenzaprine [Flexeril] 10 mg PO TID PRN #30 tablet 11/24/19 [Rx] tiZANidine [Zanaflex] 4 mg PO TID PRN 12/02/19 [History] traMADol [Ultram] 50 mg PO Q6H PRN 12/02/19 [History] Past Medical History HEENT History: Reports: Hard of Hearing, Impaired Vision Cardiovascular History: Reports: Heart Failure, High Cholesterol, Hypertension Genitourinary History: Reports: BPH, Chronic Renal Insuffiency Musculoskeletal History: Reports: Back Pain, Chronic Endocrine/Metabolic History: Reports: Diabetes, Type II, Hypothyroidism, Obesity/BMI 30+ - Infectious Disease History Infectious Disease History: Reports: Novel Coronavirus Other Infectious Disease History: COVID (positive 10/18/2019) - Past Surgical History HEENT Surgical History: Reports: None Cardiovascular Surgical History: Reports: None Male Surgical History: Reports: None Endocrine Surgical History: Reports: None Social & Family History - Family History Family Medical History: Noncontributory - Tobacco Use Tobacco Use Status *Q: Former Tobacco User Used Tobacco, but Quit: Yes Month/Year Tobacco Last Used: 35 years ago - Caffeine Use Caffeine Use: Reports: Coffee - Living Situation & Occupation Living situation: Reports: , with Spouse Occupation: Retired ED ROS GENERAL - Review of Systems Review Of Systems: Comprehensive ROS is negative, except as noted in HPI. ED EXAM, RENAL/ - Physical Exam Exam: See Below Exam Limited By: No Limitations General Appearance: Alert, WD/WN, Mild Distress, Obese Eye Exam: Bilateral Eye: EOMI, Normal Inspection, PERRL Ears: Normal External Exam, Normal Canal, Hearing Grossly Normal, Normal TMs Nose: Normal Inspection, Normal Mucosa, No Blood Throat/Mouth: Normal Inspection, Normal Lips, Normal Teeth, Normal Gums, Normal Oropharynx, Normal Voice, No Airway Compromise Head: Atraumatic, Normocephalic Neck: Normal Inspection, Supple, Non-Tender, Full Range of Motion Respiratory/Chest: No Respiratory Distress, Lungs Clear, Normal Breath Sounds, No Accessory Muscle Use, Chest Non-Tender Cardiovascular: Normal Peripheral Pulses, Regular Rate, Rhythm, No Edema, No Gallop, No JVD, No Murmur, No Rub GI/Abdominal: Normal Bowel Sounds, Soft, Non-Tender, No Organomegaly, No Distention, No Abnormal Bruit, No Mass (Male) Exam: Deferred Rectal (Males) Exam: Deferred Back Exam: Decreased Range of Motion (due to low back pain) Extremities: Normal Inspection, Pedal Edema, Limited Range of Motion (due to low back pain) Neurological: Alert, Oriented, CN II-XII Intact, Normal Cognition, Normal Gait, Normal Reflexes, No Motor/Sensory Deficits Psychiatric: Normal Affect, Normal Mood Skin Exam: Warm, Dry, Intact, Normal Color, No Rash Lymphatic: No Adenopathy Course - Vital Signs Last Recorded V/S: Last Vital Signs Temp 36.8 C 12/02/19 10:10 Pulse 81 12/02/19 10:10 Resp 18 12/02/19 10:10 BP 111/46 L 12/02/19 10:10 Pulse Ox 91 L 12/02/19 10:10 - Orders/Labs/Meds Orders: Active Orders 24 hr Category Date Time Status CBC WITH AUTO DIFF [HEME] Stat Lab 12/02/19 11:35 Results MANUAL DIFFERENTIAL QA/NC [HEME] Stat Lab 12/02/19 11:35 Results Labs: Laboratory Tests 12/02/19 12/02/19 12/02/19 Range/Units 11:35 11:35 12:05 WBC 7.5 (5.0-10.0) 10^3/uL RBC 3.18 L (4.6-6.2) 10^6/uL Hgb 9.0 L (14.0-18.0) g/dL Hct 28.3 L (40.0-54.0) % MCV 89.0 (80-100) fL MCH 28.3 (27.0-34.0) pg MCHC 31.8 L (33.0-35.0) g/dL Plt Count 315 D (150-450) 10^3/uL Neut % (Auto) 81.6 H (42.2-75.2) % Lymph % (Auto) 8.0 L (20.5-50.1) % [place] % (Auto) 10.0 H (2-8) % Eos % (Auto) 0.1 L (1.0-3.0) % Baso % (Auto) 0.3 (0.0-1.0) % Add Manual Diff Yes Sodium 135 L (136-145) mmol/L Potassium 3.9 (3.5-5.1) mmol/L Chloride 98 (98-107) mmol/L Carbon Dioxide 30 (21-32) mmol/L Anion Gap 10.9 (7-13) mEq/L BUN 30 H (7-18) mg/dL Creatinine 1.87 H (0.70-1.30) mg/dL Est Cr Clr Drug Dosing 32.03 mL/min Estimated GFR (MDRD) 35 BUN/Creatinine Ratio 16.0 (No establ ref range) Glucose 225 H (74-99) mg/dL Calcium 8.7 (8.5-10.1) mg/dL Total Bilirubin 0.5 (0.2-1.0) mg/dL AST 23 (15-37) U/L ALT 17 (16-63) U/L Alkaline Phosphatase 49 (46-116) U/L Total Protein 6.1 L (6.4-8.2) g/dL Albumin 2.3 L (3.4-5.0) g/dL Globulin 3.8 Albumin/Globulin Ratio 0.61 Urine Color Yellow (YELLOW) Urine Appearance Clear (CLEAR) Urine pH 5.5 (5.0-9.0) Ur Specific [place] 1.010 (1.005-1.030) Urine Protein Negative (NEGATIVE) Urine Glucose (UA) Negative (NEGATIVE) Urine Ketones Negative (NEGATIVE) Urine Occult Blood Negative (NEGATIVE) Urine Nitrite Negative (NEGATIVE) Urine Bilirubin Negative (NEGATIVE) Urine Urobilinogen 0.2 (0.2-1.0) mg/dL Ur Leukocyte Esterase Negative (NEGATIVE) - Re-Assessments/Exams Free Text/Narrative Re-Assessment/Exam: 12/02/19 11:58 Reviewing the patient's discharge summery from his last hospital stay. Dr. Hernandez recommended that the patient be referred to Neurosurgery for a consult. The referral for pain management was made on 11/28/19 with no referral to neurosurgery. 12/02/19 12:28 Dr. Dinero came to the ED to visit with the patient about treatments and further testing. Departure - Departure Time of Disposition: 12:37 Disposition: Home, Self-Care 01 Condition: Fair Clinical Impression: Urinary incontinence Low back pain Qualifiers: Chronicity: chronic Back pain laterality: bilateral Sciatica presence: without sciatica Qualified Code(s): M54.5 - Low back pain - Discharge Information *PRESCRIPTION DRUG MONITORING PROGRAM REVIEWED*: Not Applicable *COPY OF PRESCRIPTION DRUG MONITORING REPORT IN PATIENT PREET: Not Applicable Instructions: Chronic Back Pain, [id number] Forms: ED Department Discharge Care Plan Goals: The patient was advised of the examination and lab results during the visit. The patient was encouraged to continue to take his medications as prescribed. The patient should follow-up with pain management as scheduled. If the patient has any additional symptoms or concerns, the patient should either return to the emergency department or visit his primary care facility. Sepsis Event Note (ED) - Evaluation Sepsis Screening Result: No Definite Risk - Focused Exam Vital Signs: Vital Signs Temp Pulse Resp BP Pulse Ox 12/02/19 10:10 36.8 C 81 18 111/46 L 91 L - My Orders Last 24 Hours: My Active Orders 12/02/19 11:35 CBC WITH AUTO DIFF [HEME] Stat MANUAL DIFFERENTIAL QA/NC [HEME] Stat - Assessment/Plan Last 24 Hours: My Active Orders 12/02/19 11:35 CBC WITH AUTO DIFF [HEME] Stat MANUAL DIFFERENTIAL QA/NC [HEME] Stat
[2019-12-02 11:59] LABS: ANION GAP 10.9 mEq/L (7-13)
== END 2019-12-02 13:03 | disposition home or self-care (01) ==
LOC: DL.ED 10:00
DX: R32 Unspecified urinary incontinence (principal); M54.5 Low back pain; E78.00 Pure hypercholesterolemia, unspecified; I13.0 Hypertensive heart and chronic kidney disease with heart failure and stage 1 through stage 4 chronic kidney disease, or unspecified chronic kidney disease; I50.9 Heart failure, unspecified; N18.9 Chronic kidney disease, unspecified; E11.22 Type 2 diabetes mellitus with diabetic chronic kidney disease; E03.9 Hypothyroidism, unspecified; E66.9 Obesity, unspecified; Z68.39 Body mass index [BMI] 39.0-39.9, adult; Z79.82 Long term (current) use of aspirin; Z79.4 Long term (current) use of insulin; Z79.899 Other long term (current) drug therapy; Z87.891 Personal history of nicotine dependence
CPT/HCPCS: 36415; 80053; 81003; 85025; 99283; 99284

== ENCOUNTER 2020-09-21 16:00 | Emergency (ER) | payer MEDICARE, OTHER ==
[2020-09-21 16:05] VITALS: BP 135/42; PULSE 74
[2020-09-21 17:09] LABS: ANION GAP 11.3 mEq/L (7-13)
--- NOTE | 2020-09-21 17:51 | CT ---
PROCEDURE INFORMATION: Exam: CT Head Without Contrast Exam date and time: 09/21/2020 5:28 PM Age: 79 years old Clinical indication: Dizziness; Additional info: New onset recurrent dizziness TECHNIQUE: Imaging protocol: Computed tomography of the head without contrast. Radiation optimization: All CT scans at this facility use at least one of these dose optimization techniques: automated exposure control; mA and/or kV adjustment per patient size (includes targeted exams where dose is matched to clinical indication); or iterative reconstruction. COMPARISON: CT Head wo Cont 04/19/2014 6:35 PM FINDINGS: Brain: Normal. No hemorrhage. Unremarkable white matter. No mass effect. Cerebral ventricles: No ventriculomegaly. Paranasal sinuses: Secretions seen in the sphenoid sinuses. Mastoid air cells: Visualized mastoid air cells are well aerated. Bones/joints: Unremarkable. No acute fracture. Soft tissues: Unremarkable. IMPRESSION: 1. No acute intracranial pathology 2. Secretions in the sphenoid sinuses may represent acute sinusitis
[2020-09-21] MEDS ORDERED: Meclizine 12.5 MG Tab PO ONE (18:08)
--- NOTE | 2020-09-21 18:10 | EDM.PDOC ---
"Scribed by Ally Zaidi 09/21/20 1702 for Risa Kim MD ED HPI GENERAL MEDICAL PROBLEM - General Chief Complaint: General Stated Complaint: FROM CLINIC Time Seen by Provider: 09/21/20 16:14 Source of Information: Reports: Patient, Family (), Provider (Denise), RN, RN Notes Reviewed History Limitations: Reports: No Limitations - History of Present Illness INITIAL COMMENTS - FREE TEXT/NARRATIVE: Patient presents to ED from [facility] sent by Dr. Walker, stating that since this morning. He has been having some dizziness and light headedness. He de scribes the dizziness as being suddenly off balance or the sensation of falling. He admits to some lightheadedness. Denies association of dizziness with nausea or vomiting. Denies syncope or near syncope. States that while at the clinic nothing was done for these issues, but Dr. Walker reports pt had no significant exam or lab abnormalities. Patient's states that patient has a fungus in his right ear. He states that he has had this ear fungus issue for 3 weeks and has been doctoring with Dr Arriaga. Patient states that he called Dr. Trevino office today about the dizziness and they told him nothing in the ear could cause this dizziness. Patient states that he has never had dizziness like this in the past. Denies chest pain, palpitations, headache, ear pain, sore throat, visual changes, or neck pain. Admits to recent sinus congestion and runny nose. Onset: Gradual Duration: Getting Worse Severity: Moderate Improves with: Reports: None Worsens with: Reports: None Associated Symptoms: Reports: No Other Symptoms - Related Data Allergies Allergy/AdvReac Type Severity Reaction Status Date / Time No Known Allergies Allergy Verified 12/02/19 10:20 Home Meds: Home Meds Aspirin [Neal Chewable Aspirin] 81 mg PO DAILY 12/07/13 [History] Levothyroxine 175 mcg PO ACBREAKFAST 12/07/13 [History] Sodium Bicarbonate 650 mg PO BID 12/07/13 [History] amLODIPine [Norvasc] 5 mg PO DAILY 12/07/13 [History] atenoloL [Atenolol] 50 mg PO BID 12/07/13 [History] atorvaSTATin [Lipitor] 20 mg PO BEDTIME 12/07/13 [History] Pioglitazone [Actos] 15 mg PO DAILY 10/22/17 [History] Terazosin [Hytrin] 5 mg PO BEDTIME 10/22/17 [History] Fludrocortisone [Florinef] 0.1 mg PO Q48H 10/25/19 [History] Furosemide [Lasix] 40 mg PO DAILY 10/25/19 [History] Gabapentin [Neurontin] 300 mg PO DAILY PRN 10/25/19 [History] calcitrioL [Calcitriol] 0.25 mcg PO DAILY 10/25/19 [History] hydrALAZINE [Apresoline] 50 mg PO TID 10/25/19 [History] Alogliptin Benzoate [Alogliptin] 12.5 mg PO DAILY 11/23/19 [History] Insuln Asp Prot/Insulin Aspart [NovoLOG Mix 70-30] 19 units SUBCUT BID 11/23/19 [History] Losartan [Cozaar] 25 mg PO DAILY 11/23/19 [History] Cyclobenzaprine [Flexeril] 10 mg PO TID PRN #30 tablet 11/24/19 [Rx] tiZANidine [Zanaflex] 4 mg PO TID PRN 12/02/19 [History] traMADol [Ultram] 50 mg PO Q6H PRN 12/02/19 [History] Past Medical History HEENT History: Reports: Hard of Hearing, Impaired Vision Cardiovascular History: Reports: Heart Failure, High Cholesterol, Hypertension Genitourinary History: Reports: BPH, Chronic Renal Insuffiency Musculoskeletal History: Reports: Back Pain, Chronic Endocrine/Metabolic History: Reports: Diabetes, Type II, Hypothyroidism, Obesity/BMI 30+ - Infectious Disease History Infectious Disease History: Reports: Novel Coronavirus Other Infectious Disease History: COVID (positive 10/18/2019) - Past Surgical History HEENT Surgical History: Reports: None Cardiovascular Surgical History: Reports: None Male Surgical History: Reports: None Endocrine Surgical History: Reports: None Social & Family History - Family History Family Medical History: No Pertinent Family History - Tobacco Use Tobacco Use Status *Q: Never Tobacco User Second Hand Smoke Exposure: No - Caffeine Use Caffeine Use: Reports: Coffee - Recreational Drug Use Recreational Drug Use: No - Living Situation & Occupation Living situation: Reports: , with Spouse Occupation: Retired ED ROS GENERAL - Review of Systems Review Of Systems: Comprehensive ROS is negative, except as noted in HPI. ED EXAM, GENERAL - Physical Exam Exam: See Below Exam Limited By: No Limitations General Appearance: Alert, WD/WN, No Apparent Distress Eye Exam: Bilateral Eye: EOMI, Nystagmus (Left lateral gaze nystagmus), PERRL Ears: Normal External Exam, Other (Hearing aids. Under tx with antifungal for fungal otitis externa) Nose: No Blood, Nasal Drainage (Moderate congestion, clear nasal drainage) Throat/Mouth: Normal Inspection, Normal Lips, Normal Oropharynx, Normal Voice, No Airway Compromise Head: Atraumatic, Normocephalic Neck: Normal Inspection, Supple, Non-Tender, Full Range of Motion Respiratory/Chest: No Respiratory Distress, Lungs Clear, Normal Breath Sounds, No Accessory Muscle Use, Chest Non-Tender Cardiovascular: Normal Peripheral Pulses, Regular Rate, Rhythm GI/Abdominal: Normal Bowel Sounds, Soft, Non-Tender, No Organomegaly, No Distention, No Abnormal Bruit, No Mass (Male) Exam: Deferred Rectal (Males) Exam: Deferred Back Exam: Normal Inspection, Full Range of Motion, NT Extremities: Normal Inspection, Normal Range of Motion, Non-Tender, Normal Capillary Refill, No Pedal Edema Neurological: Alert, Oriented, CN II-XII Intact, Normal Cognition, Normal Gait, No Motor/Sensory Deficits Psychiatric: Normal Affect, Normal Mood Skin Exam: Warm, Dry, Intact, Normal Color, No Rash #1 Interpretation EKG Date: 09/21/20 Time: 16:20 Rhythm: Other (sinus rhythm) Rate (Beats/Min): 61 [place]: Normal P-Wave: Present QRS: RBBB (and LAFB. Baseline wander in LEad (s) V3, V4, V5.) ST-T: Normal QT: Normal Comparison: NA - No Prior EKG Course - Vital Signs Last Recorded V/S: Last Vital Signs Temp 98.3 F 09/21/20 15:53 Pulse 74 09/21/20 15:53 Resp 18 09/21/20 15:53 BP 135/42 L 09/21/20 15:53 Pulse Ox 100 09/21/20 15:53 Orthostatic Blood Pressure [ 126/49 Standing] Orthostatic Blood Pressure [ 119/54 Sitting] Orthostatic Blood Pressure [ 135/45 Supine] - Orders/Labs/Meds Orders: Active Orders 24 hr Category Date Time Status EKG 12 Lead [EKG Documentation Completion] [RC] STAT Care 09/21/20 16:10 Active Meclizine [Antivert] Med 09/21/20 18:08 Once 25 mg PO ONETIME ONE Labs: Laboratory Tests 09/21/20 09/21/20 09/21/20 Range/Units 16:37 16:37 16:47 WBC 6.4 (5.0-10.0) 10^3/uL RBC 3.97 L (4.6-6.2) 10^6/uL Hgb 11.6 L D (14.0-18.0) g/dL Hct 36.7 L (40.0-54.0) % MCV 92.4 D (80-100) fL MCH 29.2 (27.0-34.0) pg MCHC 31.6 L (33.0-35.0) g/dL Plt Count 201 D (150-450) 10^3/uL Neut % (Auto) 61.7 (42.2-75.2) % Lymph % (Auto) 25.9 (20.5-50.1) % [place] % (Auto) 8.5 H (2-8) % Eos % (Auto) 3.4 H (1.0-3.0) % Baso % (Auto) 0.5 (0.0-1.0) % Sodium 137 (136-145) mmol/L Potassium 5.3 H (3.5-5.1) mmol/L Chloride 100 (98-107) mmol/L Carbon Dioxide 31 (21-32) mmol/L Anion Gap 11.3 (7-13) mEq/L BUN 44 H (7-18) mg/dL Creatinine 1.95 H (0.70-1.30) mg/dL Est Cr Clr Drug Dosing 30.21 mL/min Estimated GFR (MDRD) 33 BUN/Creatinine Ratio 22.6 (No establ ref range) Glucose 257 H (70-99) mg/dL Calcium 8.8 (8.5-10.1) mg/dL Total Bilirubin 0.5 (0.2-1.0) mg/dL AST 18 (15-37) U/L ALT 26 (16-63) U/L Alkaline Phosphatase 70 (46-116) U/L Troponin I High Sens 10 (<=76) pg/mL Total Protein 7.0 (6.4-8.2) g/dL Albumin 3.4 (3.4-5.0) g/dL Globulin 3.6 Albumin/Globulin Ratio 0.9 Urine Color Yellow (YELLOW) Urine Appearance Clear (CLEAR) Urine pH 6.0 (5.0-9.0) Ur Specific [place] 1.015 (1.005-1.030) Urine Protein Negative (NEGATIVE) Urine Glucose (UA) Negative (NEGATIVE) Urine Ketones Negative (NEGATIVE) Urine Occult Blood Negative (NEGATIVE) Urine Nitrite Negative (NEGATIVE) Urine Bilirubin Negative (NEGATIVE) Urine Urobilinogen 0.2 (0.2-1.0) mg/dL Ur Leukocyte Esterase Negative (NEGATIVE) - Radiology Interpretation Free Text/Narrative:: [facility] Final Radiology Report Call: [phone] assistance Online chat: [email or web address] Name: JOSE ZAVALA Age: 79Years M Date: 09/21/2020 SSN: -- : [id number] Study: CT HEAD WO CONT Requesting Physician: RISA KIM Images: [id number] Addl Studies: Provided Clinical History: New onset recurrent dizziness Contrast: Without Contrast Medium: Contrast Amount: Contrast Method: Page 1 of 2 PROCEDURE INFORMATION: Exam: CT Head Without Contrast Exam date and time: 09/21/2020 5:28 PM Age: 79 years old Clinical indication: Dizziness; Additional info: New onset recurrent dizziness TECHNIQUE: Imaging protocol: Computed tomography of the head without contrast. Radiation optimization: All CT scans at this facility use at least one of these dose optimization techniques: automated exposure control; mA and/or kV adjustment per patient size (includes targeted exams where dose is matched to clinical indication); or iterative reconstruction. COMPARISON: CT Head wo Cont 04/19/2014 6:35 PM FINDINGS: Brain: Normal. No hemorrhage. Unremarkable white matter. No mass effect. Cerebral ventricles: No ventriculomegaly. Paranasal sinuses: Secretions seen in the sphenoid sinuses. Mastoid air cells: Visualized mastoid air cells are well aerated. Bones/joints: Unremarkable. No acute fracture. Soft tissues: Unremarkable. IMPRESSION: 1. No acute intracranial pathology 2. Secretions in the sphenoid sinuses may represent acute sinusitis Thank you for allowing us to participate in the care of your patient. Dictated and Authenticated by: Jose Park MD TROTTMANISHA[facility] | Final Radiology Report CONFIDENTIALITY STATEMENT This report is intended only for use by the referring physician, and only in accordance with law. If you received this in error, call [phone]. Page 2 of 2 09/21/2020 5:51 PM Central Time ([place] & [place]) Departure - Departure Time of Disposition: 18:00 Disposition: Home, Self-Care 01 Condition: Good Clinical Impression: Dizziness Sphenoid sinusitis Qualifiers: Chronicity: acute Recurrence: non-recurrent Qualified Code(s): J01.30 - Acute sphenoidal sinusitis, unspecified Labyrinthitis Qualifiers: Laterality: unspecified laterality Qualified Code(s): H83.09 - Labyrinthitis, unspecified ear - Discharge Information *PRESCRIPTION DRUG MONITORING PROGRAM REVIEWED*: Not Applicable *COPY OF PRESCRIPTION DRUG MONITORING REPORT IN PATIENT PREET: Not Applicable Instructions: Sinusitis, Adult, [id number], Dizziness, [id number] Forms: ED Department Discharge Additional Instructions: Rx: Meclizine 25mg *Do not drive while taking this medication as it may cause drowsiness. Follow up in clinic if not improving in 3 to 4 days. Sepsis Event Note (ED) - Evaluation Sepsis Screening Result: No Definite Risk - Focused Exam Vital Signs: Vital Signs Temp Pulse Resp BP Pulse Ox 09/21/20 15:53 98.3 F 74 18 135/42 L 100 - My Orders Last 24 Hours: My Active Orders 09/21/20 16:10 EKG 12 Lead [EKG Documentation Completion] [RC] STAT 09/21/20 18:08 Meclizine [Antivert] 25 mg PO ONETIME ONE - Assessment/Plan Last 24 Hours: My Active Orders 09/21/20 16:10 EKG 12 Lead [EKG Documentation Completion] [RC] STAT 09/21/20 18:08 Meclizine [Antivert] 25 mg PO ONETIME ONE I have read and agree with the documentation that has been completed regarding this visit. By signing this record, I attest that the documentation was completed in my physical presence and is an accurate record of the encounter."
== END 2020-09-21 18:25 | disposition home or self-care (01) ==
LOC: DL.ED 16:00
DX: R42 Dizziness and giddiness (principal); J01.30 Acute sphenoidal sinusitis, unspecified; H83.09 Labyrinthitis, unspecified ear; I13.0 Hypertensive heart and chronic kidney disease with heart failure and stage 1 through stage 4 chronic kidney disease, or unspecified chronic kidney disease; E11.22 Type 2 diabetes mellitus with diabetic chronic kidney disease; N18.9 Chronic kidney disease, unspecified; I50.9 Heart failure, unspecified; E78.00 Pure hypercholesterolemia, unspecified; E66.9 Obesity, unspecified; Z68.35 Body mass index [BMI] 35.0-35.9, adult; Z86.16 Personal history of COVID-19; Z79.82 Long term (current) use of aspirin; Z79.899 Other long term (current) drug therapy
CPT/HCPCS: 36415; 70450; 80053; 81003; 84484; 85025; 93005; 99284; A9270

== ENCOUNTER 2021-10-09 19:51 | Inpatient (IN) | payer MEDICARE, OTHER ==
[2021-10-09] MEDS ORDERED: Magnesium Hydroxide 400 MG/5 ML Susp 30 ML Cup PO PRN (20:54)
[2021-10-09] MEDS ORDERED: Ondansetron 4 MG/2 ML SDV IVPUSH PRN (20:54)
[2021-10-09] MEDS ORDERED: Acetaminophen/HYDROcodone 325-5 MG Tab PO PRN (20:54)
[2021-10-09] MEDS ORDERED: Polyethylene Glycol 3350 Powder 17 GM Packet PO PRN (20:54)
[2021-10-09] MEDS ORDERED: Acetaminophen 325 MG Tab PO PRN (20:54)
[2021-10-09] MEDS ORDERED: HYDROmorphone 0.5 MG/0.5 ML Syringe IVPUSH PRN (20:54)
[2021-10-09] MEDS ORDERED: Furosemide 40 MG/4 ML VIAL IVPUSH ONE (23:32)
[2021-10-10] MEDS: Albuterol/Ipratropium 3.0-0.5 MG/3 ML Neb Soln NEB PRN ×2 (00:06→20:25)
[2021-10-10 00:11] LABS: ANION GAP 12.6 mEq/L (7-13)
[2021-10-10 07:25] LABS: ANION GAP 15.1 mEq/L (7-13)
[2021-10-10] MEDS ORDERED: Heparin Sodium 5,000 Units/ML Vial IVPUSH ONE ×3 (07:36→23:24)
[2021-10-10] MEDS: Heparin Sodium/0.45% NaCl 25,000 UNITS/500 ML BAG IV SCH (07:48)
[2021-10-10] MEDS ORDERED: Losartan 25 MG Tab PO SCH (09:00)
[2021-10-10] MEDS ORDERED: Gabapentin 100 MG Cap PO PRN (12:39)
[2021-10-10] MEDS: hydrALAZINE 25 MG Tab PO SCH ×2 (14:28→20:25)
[2021-10-10] MEDS ORDERED: Ziprasidone Mesylate 20 MG Vial IM ONE (16:13)
[2021-10-10] MEDS ORDERED: Furosemide 20 MG/2 ML VIAL IVPUSH ONE (16:13)
[2021-10-10] MEDS ORDERED: Bumetanide 1 MG/4 ML MDV IVPUSH ONE (16:19)
[2021-10-10] MEDS: Insulin Lispro Protamine/Lispro 75-25 100 Units/ML 10 ML Vial SUBCUT SCH (17:27)
[2021-10-10] MEDS ORDERED: Ziprasidone Mesylate 20 MG Vial IM PRN (19:57)
[2021-10-10] MEDS: Atenolol 50 MG Tab PO SCH (20:25)
[2021-10-10] MEDS: Sodium Bicarbonate 650 MG Tab PO SCH (20:25)
[2021-10-10] MEDS ORDERED: Insulin Lispro Protamine/Lispro 75-25 100 Units/ML 10 ML Vial SUBCUT SCH (21:00)
[2021-10-10] MEDS ORDERED: Terazosin 5 MG Cap PO SCH (21:00)
[2021-10-10] MEDS ORDERED: Water For Injection, Sterile 10 ML ONE (21:01)
[2021-10-10] MEDS: Ziprasidone Mesylate 20 MG Vial IM PRN (21:08)
[2021-10-11] MEDS: Heparin Sodium/0.45% NaCl 25,000 UNITS/500 ML BAG IV SCH (03:00)
[2021-10-11] MEDS ORDERED: Water For Injection, Sterile 10 ML ONE (03:35)
[2021-10-11] MEDS: Ziprasidone Mesylate 20 MG Vial IM PRN (03:43)
[2021-10-11] MEDS ORDERED: Levothyroxine 75 MCG Tab PO SCH (06:00)
[2021-10-11] MEDS ORDERED: Bumetanide 1 MG/4 ML MDV IVPUSH ONE ×2 (06:00)
[2021-10-11] MEDS ORDERED: Levothyroxine 100 MCG Tab PO SCH (06:00)
[2021-10-11 06:09] LABS: ANION GAP 13.2 mEq/L (7-13)
[2021-10-11] MEDS: Insulin Lispro Protamine/Lispro 75-25 100 Units/ML 10 ML Vial SUBCUT SCH (08:00)
[2021-10-11] MEDS: Sodium Bicarbonate 650 MG Tab PO SCH (08:39)
[2021-10-11] MEDS: Albuterol/Ipratropium 3.0-0.5 MG/3 ML Neb Soln NEB PRN (08:39)
[2021-10-11 08:40] VITALS: BP 126/64
[2021-10-11] MEDS: hydrALAZINE 25 MG Tab PO SCH (08:42)
[2021-10-11] MEDS: Atenolol 50 MG Tab PO SCH (08:42)
[2021-10-11 08:46] VITALS: PULSE 72
[2021-10-11] MEDS ORDERED: Potassium Chloride 10 MEQ Tab.ER PO SCH (09:00)
[2021-10-11] MEDS ORDERED: Clopidogrel 75 MG Tab PO SCH (09:00)
[2021-10-11] MEDS ORDERED: Losartan 25 MG Tab PO SCH (09:00)
[2021-10-11] MEDS ORDERED: Metolazone 2.5 MG Tab PO SCH (09:00)
[2021-10-11] MEDS ORDERED: SAXAGLIPTIN HCL 5 MG PO SCH (09:00)
[2021-10-11] MEDS ORDERED: Calcitriol 0.25 MCG Cap PO SCH (09:00)
[2021-10-11 11:52] LABS: O2 DELIVERY DEVICE BIPAP
[2021-10-11 11:53] LABS: ALLEN TEST PERFORMED; BASE EXCESS ARTERIAL 3 mmol/L ((-2)-(+3)); BICARBONATE,ARTERIAL 27.3 mmol/L (22-26); O2 SATURATION ARTERIAL 97 % (95-100); PCO2 ARTERIAL 41 mmHg (35-45); PO2 ARTERIAL 89 mmHg (70-100)
== END 2021-10-11 12:41 | DRG 280 ==
LOC: DL.MS 20:00
PROVIDERS: ADMIT Internal Medicine; ATTEND Internal Medicine
DX: I13.0 Hypertensive heart and chronic kidney disease with heart failure and stage 1 through stage 4 chronic kidney disease, or unspecified chronic kidney disease (principal); I50.33 Acute on chronic diastolic (congestive) heart failure; I21.4 Non-ST elevation (NSTEMI) myocardial infarction; N17.9 Acute kidney failure, unspecified; N18.30 Chronic kidney disease, stage 3 unspecified; I27.20 Pulmonary hypertension, unspecified; I45.10 Unspecified right bundle-branch block; D50.9 Iron deficiency anemia, unspecified; E03.9 Hypothyroidism, unspecified; E88.89 Other specified metabolic disorders; E11.22 Type 2 diabetes mellitus with diabetic chronic kidney disease; M19.90 Unspecified osteoarthritis, unspecified site; L21.9 Seborrheic dermatitis, unspecified; G89.29 Other chronic pain; M54.59 Other low back pain; N52.9 Male erectile dysfunction, unspecified; N40.0 Benign prostatic hyperplasia without lower urinary tract symptoms; R33.8 Other retention of urine; E11.51 Type 2 diabetes mellitus with diabetic peripheral angiopathy without gangrene; E66.9 Obesity, unspecified; G47.33 Obstructive sleep apnea (adult) (pediatric); Z68.38 Body mass index [BMI] 38.0-38.9, adult; Z89.432 Acquired absence of left foot; Z79.82 Long term (current) use of aspirin; Z79.899 Other long term (current) drug therapy; Z79.4 Long term (current) use of insulin; Z79.890 Hormone replacement therapy; H91.90 Unspecified hearing loss, unspecified ear; H54.7 Unspecified visual loss; E78.00 Pure hypercholesterolemia, unspecified; Z86.16 Personal history of COVID-19; Z20.822 Contact with and (suspected) exposure to COVID-19
CPT/HCPCS: 36410; 36415; 36600; 71045; 76775; 80053; 82803; 82947; 83735; 83880; 84439; 84443; 84484; 85025; 85610; 85730; 94660; A9270-GY; J1644; J1815-GY; J1940; J3486; J3490; J7030; J7620-GY; U0002

== ENCOUNTER 2022-01-06 10:27 | Emergency (ER) | payer MEDICARE, OTHER ==
[2022-01-06 10:54] VITALS: BP 131/95; PULSE 73
[2022-01-06 11:55] LABS: CORONAVIRUS COVID-19 NAA NEGATIVE (NEGATIVE)
[2022-01-06 12:10] LABS: ANION GAP 15.2 mEq/L (7-13)
[2022-01-06] MEDS ORDERED: Aspirin 81 MG Tab.Chew ONE (12:25)
[2022-01-06] MEDS ORDERED: Aspirin 81 MG Tab.Chew PO ONE (12:28)
[2022-01-06] MEDS ORDERED: Heparin Sodium 5,000 Units/ML Vial ONE (12:38)
[2022-01-06] MEDS ORDERED: Heparin Sodium/0.45% NaCl 500 ML ONE (12:39)
[2022-01-06] MEDS ORDERED: Heparin Sodium 5,000 Units/ML Vial IVPUSH ONE (12:44)
[2022-01-06] MEDS ORDERED: Heparin Sodium/0.45% NaCl 500 ML IV ONE (12:46)
[2022-01-06] MEDS ORDERED: Furosemide 40 MG/4 ML VIAL IVPUSH ONE ×2 (14:37→16:27)
== END 2022-01-06 17:35 ==
LOC: DL.ED 10:27
DX: I21.4 Non-ST elevation (NSTEMI) myocardial infarction (principal); R79.89 Other specified abnormal findings of blood chemistry; I11.0 Hypertensive heart disease with heart failure; I50.9 Heart failure, unspecified; E78.00 Pure hypercholesterolemia, unspecified; E11.9 Type 2 diabetes mellitus without complications; E66.9 Obesity, unspecified; Z68.35 Body mass index [BMI] 35.0-35.9, adult; Z79.82 Long term (current) use of aspirin; Z79.899 Other long term (current) drug therapy; Z79.4 Long term (current) use of insulin; Z87.891 Personal history of nicotine dependence; Z20.822 Contact with and (suspected) exposure to COVID-19
CPT/HCPCS: 0240U; 36415; 51702; 71046; 80053; 81003; 83605; 83880; 84484; 85025; 85379; 93005; 96365; 96366; 96375; 96376; 99285; A9270; J1644; J1940